=== PATIENT | female | born 1945 | race Caucasian/White ===

== ENCOUNTER 2023-05-19 19:05 | Emergency (ER) | payer MEDICARE, SELFPAY ==
[2023-05-19 19:06] VITALS: BP 173/79; PULSE 85; RESP 18; TEMP 36.8; O2SAT 92; BMI 30.9
[2023-05-19 19:24] VITALS: BP 173/79; PULSE 86; RESP 18; O2SAT 95
--- NOTE | 2023-05-19 19:35 | ED_ITS ---
HPI - Back Pain/Injury General: Chief Complaint: Back Pain/Injury Stated Complaint: BACK PAIN Time Seen by Provider: 05/19/23 19:10 History of Present Illness: 77 years old female with chronic leg pain presents emergency room via EMS today with increased diffuse lower extremity pain. Patient described pain as aching sensation mostly on the anterior aspect of both thighs. Patient has any recent fall or injury. Denies any numbness or tingling no bowel bladder dysfunction. Denies any back pain, dysuria, hematuria urine frequency. Patient was given IV pain medication in route and feels that the pain is subsided significantly. Increased pain with movement only at this time. Associated symptoms: Deny chills, fatigue or fever(s) Review of Systems General: Reports: 10 or more systems reviewed and unremarkable except in HPI and below Const: Denies: fever(s), chills, body aches, change in appetite, change in weight, fatigue, malaise, night sweats, diaphoresis, change in sleep pattern or daytime sleepiness Resp: Denies: dyspnea, productive cough, non-productive cough, wheezing or stridor Musc: Reports: extremity pain and muscle cramps; Denies: back pain, extremity swelling, joint pain, muscle weakness, decrease in muscle mass or deformity Physical Exam Const: COMMON NORMALS: no acute distress, average body habitus, patient oriented x3, no limitations, healthy appearing, alert and well nourished HENMT: COMMON NORMALS: normocephalic, atraumatic, hearing grossly normal bilaterally, external ears normal, EAC's normal, TM's normal bilaterally, Normal external nose present, Normal nasal mucous membranes and turbinates present, moist oral mucous membranes, oropharynx normal, dentition normal and gingiva normal HEAD & SCALP: normocephalic and atraumatic NOSE: Normal external nose present and Normal nasal mucous membranes and turbinates present EXTERNAL EAR: Yes external ears normal EXTERNAL AUDITORY CANAL: EAC's normal TYMPANIC MEMBRANE: TM's normal bilaterally Neck/C-Spine: COMMON NORMALS: no JVD Chest: COMMONS NORMALS: normal inspection of the chest, normal palpation of entire chest wall, normal inspection of the breasts and normal palpation of the breasts Breast/axilla inspection: Yes normal inspection of the breasts BREAST/AXILLA PALPATION: Yes normal palpation of the breasts Cardio: COMMON NORMALS: no JVD, regular rate, regular rhythm, S1 normal heart sound present, S2 normal heart sound present, No gallops present (Cardio), No clicks present (Cardio), No murmurs present (Cardio), No rub (Cardio) and Peripheral pulses 2+ throughout RATE: regular rate RHYTHM: regular rhythm HEART SOUNDS: S1 normal heart sound present and S2 normal heart sound present PERIPHERAL PULSES: Peripheral pulses 2+ throughout GI: COMMON NORMALS: Normal to inspection, nondistended, normoactive bowel sounds present, Soft to palpation, non-tender, No hepatosplenomegaly present, no masses and no bruits PALPATION: Yes Soft to palpation and Yes No hepatosplenomegaly present Extremity: NARRATIVE EXTREMITY EXAM: No calf tenderness, no palpable cords. No swelling or pitting edema. EXTREMITY IMAGE (FRONT): 1. Area with diffuse tenderness on palpation. No obvious rash or lesion. No visible deformity. 2. Area with diffuse tenderness on palpation. No visible rash or lesion. Neuro: COMMON NORMALS: patient oriented x3 SENSORIUM/ORIENTATION: Yes alert Course Vital Signs: Vital signs: Vital Signs Temperature 98.3 F 05/19/23 19:06 Pulse Rate 91 05/19/23 20:53 Respiratory Rate 18 05/19/23 20:53 Blood Pressure 173/79 05/19/23 19:24 Pulse Oximetry 95 05/19/23 20:53 Oxygen Delivery Me thod Room Air 05/19/23 19:24 MDM - Back Pain/Injury Medical Decision Making Patient was made comfortable emergency room. Patient extensive work-up including CBC, CMP, patient was given IV medication. Patient be discharged home with family. Differential Diagnosis Likely sciatica, strain of lumbar region and thoracic back pain Labs 05/19/23 19:45 05/19/23 19:45 Laboratory Results WBC 5.88 10^3/uL (3.29-11.43) 05/19/23 19:45 RBC 4.13 10^6/uL (3.85-5.65) 05/19/23 19:45 Hgb 11.70 g/dL (11.27-16.99) 05/19/23 19:45 Hct 36.3 % (36-47) 05/19/23 19:45 MCV 87.9 fl (85-98) 05/19/23 19:45 MCH 28.3 pg (27-33) 05/19/23 19:45 MCHC 32.2 g/dL (30-55) 05/19/23 19:45 RDW 15.0 % (12.1-15.1) 05/19/23 19:45 Plt Count 304 10^3/cmm (157-399) 05/19/23 19:45 MPV 9.1 fL (7.4-10.4) 05/19/23 19:45 Neut % (Auto) 71.4 % 05/19/23 19:45 Lymph % (Auto) 17.2 % 05/19/23 19:45 [place] % (Auto) 8.8 % 05/19/23 19:45 Eos % (Auto) 2.0 % 05/19/23 19:45 Baso % (Auto) 0.3 % 05/19/23 19:45 Neut # (Auto) 4.19 10^3/uL (1.8-7.7) 05/19/23 19:45 Lymph # (Auto) 1.0 10^3/uL (0.8-4.8) 05/19/23 19:45 [place] # (Auto) 0.5 10^3/uL (0.2-0.9) 05/19/23 19:45 Eos # (Auto) 0.1 10^3/uL (0.0-0.8) 05/19/23 19:45 Baso # (Auto) 0.0 10^3/uL (0.0-0.1) 05/19/23 19:45 Nucleated RBC % (auto) 0 % 05/19/23 19:45 Nucleated RBCs # 0.0 /100WBC 05/19/23 19:45 Sodium 133 mmol/L (136-145) L 05/19/23 19:45 Potassium 3.4 mmol/L (3.5-5.1) L 05/19/23 19:45 Chloride 100 mmol/L (98-107) 05/19/23 19:45 Carbon Dioxide 24 mmol/L (22-29) 05/19/23 19:45 Anion Gap 12.4 (5-19) 05/19/23 19:45 BUN 12 mg/dL (8-23) 05/19/23 19:45 Creatinine 0.8 mg/dL (0.5-0.9) 05/19/23 19:45 GFR Calculation Not Reportable 05/19/23 19:45 Glucose 97 mg/dL (65-115) 05/19/23 19:45 Calculated Osmolality 276 mOsm/kg (285-295) L 05/19/23 19:45 Calcium 9.2 mg/dL (8.5-10.5) 05/19/23 19:45 Magnesium 2.0 mg/dL (1.7-2.3) 05/19/23 19:45 Total Bilirubin 0.3 mg/dL (0.15-1.2) 05/19/23 19:45 AST 20 U/L (0-32) 05/19/23 19:45 ALT 8 U/L (0-33) 05/19/23 19:45 Alkaline Phosphatase 113 U/L (35-105) H 05/19/23 19:45 Total Protein 7.6 g/dL (6.6-8.7) 05/19/23 19:45 Albumin 4.3 g/dL (3.5-5.2) 05/19/23 19:45 Globulin 3.3 g/dL (1.3-4.6) 05/19/23 19:45 No radiology studies performed this visit Discharge Plan Discharge Patient Disposition: Home Clinical Impression: Myalgia, Leg pain, bilateral Condition: Stable Prescriptions: No Action potassium chloride 20 mEq Tablet Extended Release 20 meq PO DAILY gabapentin 600 mg tablet 600 mg PO DIRECTED Rx Instructions: 4x day oxycodone 10 mg tablet 10 mg PO 3XD PRN (Reason: Pain) famotidine 20 mg Tablet 20 mg PO DAILY Synthroid 25 mcg tablet 25 mcg PO DAILY duloxetine 30 mg capsule,delayed release(DR/EC) 30 mg PO 2XD oxybutynin chloride 5 mg tablet 5 mg PO DAILY Discharge Orders: Discharge ED (Routine); Ordered 05/19/23 Ordered By: Melly Bass Discharge Diet: Advance as tolerated Discharge Activity: Resume usual activity Patient Instructions: Opioid Safety, Pain Management Coding Level of Care Code ED Probation Supervisor for Trever Garcia
[2023-05-19] MEDS: ketorolac 30 mg/mL INJ 15 MG IVP (19:44)
[2023-05-19 19:53] LABS: Basophils % 0.3 %; Eosinophils # 0.1 10^3/uL (0.0-0.8); Hematocrit 36.3 % (36-47); Lymphocytes % 17.2 %; Mean Corpuscular HGB Conc 32.2 g/dL (30-55); Mean Corpuscular Hemoglobin 28.3 pg (27-33); Mean Corpuscular Volume 87.9 fl (85-98); Mean Platelet Volume 9.1 fL (7.4-10.4); Monocytes # 0.5 10^3/uL (0.2-0.9); Monocytes % 8.8 %; Neutrophils # 4.19 10^3/uL (1.8-7.7); Neutrophils % 71.4 %; Nucleated Red Blood Cells % 0 %; Platelet Count 304 10^3/cmm (157-399); Red Blood Count 4.13 10^6/uL (3.85-5.65); White Blood Count 5.88 10^3/uL (3.29-11.43)
[2023-05-19 20:11] LABS: Alanine Aminotransferase 8 U/L (0-33); Albumin Level 4.3 g/dL (3.5-5.2); Alkaline Phosphatase 113 U/L (35-105); Anion Gap 12.4 (5-19); Aspartate Amino Transferase 20 U/L (0-32); Blood Urea Nitrogen 12 mg/dL (8-23); Calcium 9.2 mg/dL (8.5-10.5); Carbon Dioxide 24 mmol/L (22-29); Chloride 100 mmol/L (98-107); Creatinine Clr Calc Pharmacy 59.9086; Globulin 3.3 g/dL (1.3-4.6); Glucose 97 mg/dL (65-115); Osmolality Calculated 276 mOsm/kg (285-295); Potassium 3.4 mmol/L (3.5-5.1); Sodium 133 mmol/L (136-145); Total Bilirubin 0.3 mg/dL (0.15-1.2); Total Protein 7.6 g/dL (6.6-8.7)
[2023-05-19 20:53] VITALS: PULSE 91; RESP 18; O2SAT 95
== END 2023-05-19 20:50 | disposition home or self-care (01) ==
PROVIDERS: Emergency Provider Family Medicine; PCP Family Medicine
DX: M79.604 Pain in right leg (principal); M79.605 Pain in left leg; M79.10 Myalgia, unspecified site
CPT/HCPCS: 36415; 80053; 83735; 85025; 96374; 99284; J1885

== ENCOUNTER → 2023-06-05 09:16 | Outpatient (BNVA) | payer MEDICARE, SELFPAY | PROVIDERS: PCP Family Medicine; Visit Provider Specialist | DX: M16.12 Unilateral primary osteoarthritis, left hip; K02.9 Dental caries, unspecified | CPT/HCPCS: 73502; 99204 ==

== ENCOUNTER 2024-01-27 20:45 | Inpatient (IN) | payer MEDICARE, SELFPAY ==
[2024-01-27 20:46] VITALS: BP 145/42; PULSE 66; RESP 18; TEMP 36.7; O2SAT 95; BMI 29.2
[2024-01-27 20:53] VITALS: BP 145/42; PULSE 66; O2SAT 93
--- NOTE | 2024-01-27 20:53 | XRR_ITS ---
PROCEDURE INFORMATION: Exam: XR Left Hip Exam date and time: 01/27/2024 8:55 PM Age: 78 years old Clinical indication: Injury or trauma; Fall; Blunt trauma (contusions or hematomas); Left; Hip and pelvic region TECHNIQUE: Imaging protocol: Radiologic exam of the left hip. Views: 2 or 3 views hip with pelvis when performed. COMPARISON: CR XR hip LT 2-3V wo/w pel* [id number] 06/05/2023 9:35 AM FINDINGS: Bones/joints: Severe left hip osteoarthritis. Moderate to severe right hip osteoarthritis. Soft tissues: Unremarkable. XR/XR hip LT 2-3V wo/w pel* [id number] IMPRESSION: 1. Negative for fracture or dislocation, if concern for fracture remains clinically consider further evaluation with a CT scan given decreased bone mineral density somewhat limiting evaluation. 2. Severe left hip osteoarthritis. 3. Moderate to severe right hip osteoarthritis.
--- NOTE | 2024-01-27 20:53 | CTR_ITS ---
PROCEDURE INFORMATION: Exam: CT Lumbar Spine Without Contrast Exam date and time: 01/27/2024 9:10 PM Age: 78 years old Clinical indication: Injury or trauma; Blunt trauma (contusions or hematomas); Patient HX: EMS arrival from home for fall. Family found patient lying on the floor. Endorses back pain and left hip pain. History of dementia. Limited history. TECHNIQUE: Imaging protocol: Computed tomography of the lumbar spine without contrast. Radiation optimization: All CT scans at this facility use at least one of these dose optimization techniques: automated exposure control; mA and/or kV adjustment per patient size (includes targeted exams where dose is matched to clinical indication); or iterative reconstruction. COMPARISON: CT thoracic spin wo con* [id number] 01/27/2024 9:04 PM RADIATION DOSE METRICS: Total DLP (mGy-cm): 951.17 FINDINGS: Bones/joints: Compression deformities of T12, L1, L2, L3, L4 and L5, age indeterminate, negative for retropulsion of bony fragments. Right sacral 12 mm sclerotic benign bony lesion. L1-L2: No significant disc bulge or herniation. No severe spinal canal stenosis. No significant neural foraminal narrowing. L2-L3: No significant disc bulge or herniation. No severe spinal canal stenosis. No significant neural foraminal narrowing. L3-L4: L3-L4 broad-based disc bulge with [id number] bilateral foraminal narrowing. L4-L5: L4-L5 broad-based disc bulge with mild bilateral foraminal narrowing. L5-S1: L5-S1 broad-based disc bulge with moderate to severe bilateral foraminal narrowing. Lungs: Bibasilar atelectasis versus minimal infiltrate. Emphysematous changes. Heart: Cardiomegaly. Kidneys and ureters: Bilateral nonobstructing renal calyceal stones. Right kidney cysts. Soft tissues: Unremarkable. Other findings: Large hiatal hernia similar visualized. CT/CT lumbar spine wo con* [id number] IMPRESSION: 1. Compression deformities of T12, L1, L2, L3, L4 and L5, age indeterminate, negative for retropulsion of bony fragments. 2. Cardiomegaly. 3. Bibasilar atelectasis versus minimal infiltrate. 4. Emphysematous changes. 5. Bilateral nonobstructing renal calyceal stones. 6. Right kidney cysts. 7. Large hiatal hernia similar visualized. 8. Right sacral 12 mm sclerotic benign bony lesion. 9. L3-L4 broad-based disc bulge with [id number] bilateral foraminal narrowing. 10. L4-L5 broad-based disc bulge with mild bilateral foraminal narrowing. 11. L5-S1 broad-based disc bulge with moderate to severe bilateral foraminal narrowing. COMMENTS: Consistent with the [place] [employer]'s Incidental Findings Committee white paper (J Am Annalisa Radiol 2018): Any incidental renal lesion less than 1 cm or classified as too small to characterize, or any incidental cystic renal lesion characterized as simple-appearing, is likely benign. No follow-up imaging is recommended for these lesions per consensus recommendations based on imaging criteria.
--- NOTE | 2024-01-27 20:53 | CTR_ITS ---
PROCEDURE INFORMATION: Exam: CT Thoracic Spine Without Contrast Exam date and time: 01/27/2024 9:04 PM Age: 78 years old Clinical indication: Injury or trauma; Blunt trauma (contusions or hematomas); Patient HX: EMS arrival from home for fall. Family found patient lying on the floor. Endorses back pain and left hip pain. History of dementia. Limited history. TECHNIQUE: Imaging protocol: Computed tomography of the thoracic spine without contrast. Radiation optimization: All CT scans at this facility use at least one of these dose optimization techniques: automated exposure control; mA and/or kV adjustment per patient size (includes targeted exams where dose is matched to clinical indication); or iterative reconstruction. COMPARISON: No relevant prior studies available. RADIATION DOSE METRICS: Total DLP (mGy-cm): 871.52 FINDINGS: Bones/joints: T10, T11 and L1 vertebral body compression deformities without retropulsion of bony fragments. T1-T2: No significant disc bulge or herniation. No severe spinal canal stenosis. No significant neural foraminal narrowing. T2-T3: No significant disc bulge or herniation. No severe spinal canal stenosis. No significant neural foraminal narrowing. T3-T4: No significant disc bulge or herniation. No severe spinal canal stenosis. No significant neural foraminal narrowing. T4-T5: No significant disc bulge or herniation. No severe spinal canal stenosis. No significant neural foraminal narrowing. T5-T6: No significant disc bulge or herniation. No severe spinal canal stenosis. No significant neural foraminal narrowing. T6-T7: No significant disc bulge or herniation. No severe spinal canal stenosis. No significant neural foraminal narrowing. T7-T8: No significant disc bulge or herniation. No severe spinal canal stenosis. No significant neural foraminal narrowing. T8-T9: No significant disc bulge or herniation. No severe spinal canal stenosis. No significant neural foraminal narrowing. T9-T10: No significant disc bulge or herniation. No severe spinal canal stenosis. No significant neural foraminal narrowing. T10-T11: No significant disc bulge or herniation. No severe spinal canal stenosis. No significant neural foraminal narrowing. T11-T12: No significant disc bulge or herniation. No severe spinal canal stenosis. No significant neural foraminal narrowing. T12-L1: No significant disc bulge or herniation. No severe spinal canal stenosis. No significant neural foraminal narrowing. Lungs: Emphysematous changes. Bibasilar atelectasis versus infiltrate. Heart: Cardiomegaly. Other findings: Coronary artery atherosclerotic calcifications. Large hiatal hernia. CT/CT thoracic spin wo con* [id number] IMPRESSION: 1. T10, T11 and L1 vertebral body compression deformities without retropulsion of bony fragments. 2. Cardiomegaly. 3. Coronary artery atherosclerotic calcifications. 4. Large hiatal hernia. 5. Emphysematous changes. 6. Bibasilar atelectasis versus infiltrate.
--- NOTE | 2024-01-27 20:58 | W.ED.FALL ---
HPI - Fall General: Chief Complaint: Fall Stated Complaint: fall/back pain Time Seen by Provider: 01/27/24 20:47 Source: patient and EMS Mode of arrival: EMS Limitations: no limitations History of Present Illness: 78-year-old female with a history of dementia patient came in by EMS family states she had fallen at home talk to family as well he states she has been much more altered than her baseline patient here he only really tells me her name not able answer any questions she complained of some back pain. Pain was unsure how she fell they just found her on the floor Review of Systems General: Reports: ROS unobtainable due to mental status PFSH ED PFSH: Medical History Hypothyroidism Overactive bladder Dementia Dental caries Physical Exam Const: COMMON NORMALS: negative for patient oriented x3 HENMT: COMMON NORMALS: normocephalic and atraumatic HEAD & SCALP: normocephalic and atraumatic Neck/C-Spine: COMMON NORMALS: full ROM and supple Chest: COMMONS NORMALS: normal inspection of the chest and normal palpation of entire chest wall Resp: COMMON NORMALS: normal respiratory effort, No retractions, No use of accessory muscles and clear to auscultation bilaterally AUSCULTATION: clear to auscultation bilaterally Cardio: COMMON NORMALS: regular rate, regular rhythm and No murmurs present (Cardio) RATE: regular rate RHYTHM: regular rhythm GI: COMMON NORMALS: Normal to inspection, nondistended, normoactive bowel sounds present, Soft to palpation, non-tender and no masses PALPATION: Yes Soft to palpation Extremity: COMMON NORMALS: normal to inspection and full ROM Neuro: COMMON NORMALS: moves all extremities and no focal motor deficits; negative for patient oriented x3 Psych: COMMON NORMALS: mental status grossly normal, Normal thought process present and cooperative THOUGHT PROCESS: Normal thought process present Skin: COMMON NORMALS: no rashes or lesions noted and no wounds GENERAL SKIN EXAM: no rashes or lesions noted Course Vital Signs: Vital signs: Vital Signs Temperature 98.0 F 01/27/24 20:46 Pulse Rate 58 L 01/28/24 07:55 Respiratory Rate 16 01/28/24 07:55 Blood Pressure 113/42 01/28/24 00:53 Pulse Oximetry 96 01/28/24 07:55 Oxygen Delivery Me thod Nasal Cannula 01/28/24 07:55 Oxygen Flow Rate 2 01/28/24 07:55 MDM - Fall Medical Decision Making Patient presents here with confusion she was found to be hyponatremic spoke to the hospitalist will admit at this time Medical Records I reviewed the patient's medical records. Lab Data I reviewed the patient's lab results. 01/28/24 03:54 01/28/24 08:36 Radiology Impressions Hip/Pelvis X-Ray 01/27/24 20:53 IMPRESSION: 1. Negative for fracture or dislocation, if concern for fracture remains clinically consider further evaluation with a CT scan given decreased bone mineral density somewhat limiting evaluation. 2. Severe left hip osteoarthritis. 3. Moderate to severe right hip osteoarthritis. Lumbar Spine CT 01/27/24 20:53 IMPRESSION: 1. Compression deformities of T12, L1, L2, L3, L4 and L5, age indeterminate, negative for retropulsion of bony fragments. 2. Cardiomegaly. 3. Bibasilar atelectasis versus minimal infiltrate. 4. Emphysematous changes. 5. Bilateral nonobstructing renal calyceal stones. 6. Right kidney cysts. 7. Large hiatal hernia similar visualized. 8. Right sacral 12 mm sclerotic benign bony lesion. 9. L3-L4 broad-based disc bulge with [id number] bilateral foraminal narrowing. 10. L4-L5 broad-based disc bulge with mild bilateral foraminal narrowing. 11. L5-S1 broad-based disc bulge with moderate to severe bilateral foraminal narrowing. COMMENTS: Consistent with the [place] [employer]'s Incidental Findings Committee white paper (J Am Annalisa Radiol 2018): Any incidental renal lesion less than 1 cm or classified as too small to characterize, or any incidental cystic renal lesion characterized as simple-appearing, is likely benign. No follow-up imaging is recommended for these lesions per consensus recommendations based on imaging criteria. Thoracic Spine CT 01/27/24 20:53 IMPRESSION: 1. T10, T11 and L1 vertebral body compression deformities without retropulsion of bony fragments. 2. Cardiomegaly. 3. Coronary artery atherosclerotic calcifications. 4. Large hiatal hernia. 5. Emphysematous changes. 6. Bibasilar atelectasis versus infiltrate. Hip CT 01/27/24 21:08 IMPRESSION: 1. Negative for fracture or dislocation. 2. Severe left hip osteoarthritis. Cervical Spine CT 01/27/24 22:08 IMPRESSION: No acute findings. Head CT 01/27/24 22:08 IMPRESSION: No acute intracranial abnormality. Chest CTA 01/28/24 00:08 IMPRESSION: No acute intrathoracic pathology. Multiple compression fractures. Laboratory Results WBC 14.53 10^3/uL (3.29-11.43) H 01/27/24 22:35 RBC 4.21 10^6/uL (3.85-5.65) 01/27/24 22:35 Hgb 11.80 g/dL (11.27-16.99) 01/27/24 22: Hct 33.8 % (36-47) L 01/27/24 22: MCV 80.3 fl (85-98) L 01/27/24 22: MCH 28.0 pg (27-33) 01/27/24 22: MCHC 34.9 g/dL (30-55) 01/27/24 22: RDW 14.3 % (12.1-15.1) 01/27/24 22:35 Plt Count 367 10^3/cmm (157-399) 01/27/24 22:35 MPV 9.2 fL (7.4-10.4) 01/27/24 22:35 Neut % (Auto) 93.3 % 01/27/24 22:35 Lymph % (Auto) 3.0 % 01/27/24 22:35 [place] % (Auto) 3.1 % 01/27/24 22:35 Eos % (Auto) 0.0 % 01/27/24: Baso % (Auto) 0.3 % 01/27/24 22:35 Neut # (Auto) 13.54 10^3/uL (1.8-7.7) H 01/27/24 22:35 Lymph # (Auto) 0.4 10^3/uL (0.8-4.8) L 01/27/24 22:35 [place] # (Auto) 0.5 10^3/uL (0.2-0.9) 01/27/24 22:35 Eos # (Auto) 0.0 10^3/uL (0.0-0.8) 01/27/24 22:35 Baso # (Auto) 0.1 10^3/uL (0.0-0.1) 01/27/24 22:35 Nucleated RBC % (auto) 0 % 01/27/24 22:35 Nucleated RBCs # 0.0 /100WBC 01/27/24 22:35 D-Dimer >= 20.00 ug/mLFEU (0-0.59) H 01/27/24 22:35 Sodium 113 mmol/L (136-145) L* 01/28/24 00:00 Potassium 1.7 mmol/L (3.5-5.1) L* 01/28/24 00:00 Chloride 71 mmol/L (98-107) L 01/28/24 00:00 Carbon Dioxide 23 mmol/L (22-29) 01/28/24 00:00 Anion Gap 20.7 (5-19) H 01/28/24 00:00 BUN 18 mg/dL (8-23) 01/28/24 00:00 Creatinine 1.0 mg/dL (0.5-0.9) H 01/28/24 00:00 GFR Calculation Not Reportable 01/28/24 00:00 Glucose 93 mg/dL (65-115) 01/28/24 00:00 Calculated Osmolality 238 mOsm/kg (285-295) L 01/28/24 00:00 Calcium 8.5 mg/dL (8.5-10.5) 01/28/24 00:00 Total Bilirubin 1.0 mg/dL (0.15-1.2) 01/27/24 22:35 AST 76 U/L (0-32) H 01/27/24 22:35 ALT 23 U/L (0-33) 01/27/24 22:35 Alkaline Phosphatase 147 U/L (35-105) H 01/27/24 22:35 Total Protein 7.3 g/dL (6.6-8.7) 01/27/24 22:35 Albumin 3.6 g/dL (3.5-5.2) 01/27/24 22:35 Globulin 3.7 g/dL (1.3-4.6) 01/27/24 22:35 TSH 1.60 uIU/mL (0.27-4.20) 01/27/24 22:35 Urine Color Yellow (Yellow) 01/27/24 22:57 Urine Appearance Slightly cloudy (CLEAR) 01/27/24 22:57 Urine pH 6 (5-7) 01/27/24 22:57 Ur Specific [place] 1.010 (1.005-1.030) 01/27/24 22:57 Urine Protein Neg (Negative) 01/27/24 22:57 Urine Glucose (UA) Norm (Normal) 01/27/24 22:57 Urine Ketones 1+ (Negative) H 01/27/24 22:57 Urine Blood 2+ (Negative) H 01/27/24 22:57 Urine Nitrate Negative (Negative) 01/27/24 22:57 Urine Bilirubin Neg (Negative) 01/27/24 22:57 Urine Urobilinogen Neg mg/dL (Negative) 01/27/24 22:57 Ur Leukocyte Esterase Negative (Negative) 01/27/24 22:57 Urine RBC 0-4 /hpf (0-2) H 01/27/24 22:57 Urine WBC 5-10 /hpf (0-5) H 01/27/24 22:57 Ur Squamous Epith Cells 0-4 /hpf (0-5) H 01/27/24 22:57 Amorphous Sediment Not Reportable 01/27/24 22:57 Urine Bacteria 3+ /hpf (NONE) H 01/27/24 22:57 Urine Mucus 1+ /hpf 01/27/24 22:57 Ur Random Sodium 61 mmol/L 01/28/24 00:15 Ur Random Potassium 49 mmol/L 01/28/24 00:15 Ur Random Chloride 80 mmol/L 01/28/24 00:15 Urine Creatinine 50 mg/dL (28-217) 01/28/24 00:15 All radiology interpretation(s) finalized by discharge Discharge Plan Discharge Patient Disposition: Admitted As Inpatient Admit Provider: Kenyon Mcclain Clinical Impression: Fall, AMS (altered mental status), Hyponatremia Condition: Stable Coding Level of Care Code ED [employer] General Sales Manager for Trever Garcia
--- NOTE | 2024-01-27 21:08 | CTR_ITS ---
PROCEDURE INFORMATION: Exam: CT Left Lower Extremity Without Contrast, Hip Exam date and time: 01/27/2024 9:13 PM Age: 78 years old Clinical indication: Injury or trauma; Blunt trauma; Patient HX: EMS arrival from home for fall. Family found patient lying on the floor. Endorses back pain and left hip pain. History of dementia. Limited history. TECHNIQUE: Imaging protocol: CT of the left lower extremity without contrast was performed. Exam focused on the hip. Radiation optimization: All CT scans at this facility use at least one of these dose optimization techniques: automated exposure control; mA and/or kV adjustment per patient size (includes targeted exams where dose is matched to clinical indication); or iterative reconstruction. COMPARISON: CR (PELVIS, ) 01/27/2024 8:55 PM RADIATION DOSE METRICS: Total DLP (mGy-cm): 460.17 FINDINGS: Bones/joints: Severe left hip osteoarthritis. Soft tissues: Normal. CT/CT hip LT wo con* [id number] IMPRESSION: 1. Negative for fracture or dislocation. 2. Severe left hip osteoarthritis.
[2024-01-27 21:23] VITALS: BP 143/43; PULSE 65; O2SAT 95
[2024-01-27 21:53] VITALS: BP 125/50; PULSE 62; O2SAT 94
--- NOTE | 2024-01-27 22:08 | CTR_ITS ---
PROCEDURE INFORMATION: Exam: CT Head Without Contrast Exam date and time: 01/27/2024 10:16 PM Age: 78 years old Clinical indication: Injury or trauma; Fall; Blunt trauma (contusions or hematomas); Patient HX: Patient found on the floor at home by family. Family states patient has been more confused than normal. History of dementia. Patient non verbal upon exam. TECHNIQUE: Imaging protocol: Computed tomography of the head without contrast. Radiation optimization: All CT scans at this facility use at least one of these dose optimization techniques: automated exposure control; mA and/or kV adjustment per patient size (includes targeted exams where dose is matched to clinical indication); or iterative reconstruction. COMPARISON: No relevant prior studies available. RADIATION DOSE METRICS: Total DLP (mGy-cm): 686.51 FINDINGS: Brain: Normal. No hemorrhage. Unremarkable white matter. No mass effect. Cerebral ventricles: No ventriculomegaly. Paranasal sinuses: Visualized sinuses are unremarkable. No fluid levels. Mastoid air cells: Visualized mastoid air cells are well aerated. Bones: Unremarkable. No acute fracture. Soft tissues: Unremarkable. CT/CT head wo con* [id number] IMPRESSION: No acute intracranial abnormality.
--- NOTE | 2024-01-27 22:08 | CTR_ITS ---
PROCEDURE INFORMATION: Exam: CT Cervical Spine Without Contrast Exam date and time: 01/27/2024 10:18 PM Age: 78 years old Clinical indication: Injury or trauma; Fall; Blunt trauma; Patient HX: Patient found on the floor at home by family. Family states patient has been more confused than normal. History of dementia. Patient non verbal upon exam. TECHNIQUE: Imaging protocol: Computed tomography of the cervical spine without contrast. Radiation optimization: All CT scans at this facility use at least one of these dose optimization techniques: automated exposure control; mA and/or kV adjustment per patient size (includes targeted exams where dose is matched to clinical indication); or iterative reconstruction. COMPARISON: CT head wo con* [id number] 01/27/2024 10:16 PM RADIATION DOSE METRICS: Total DLP (mGy-cm): 116.77 FINDINGS: Bones/joints: No acute fracture. Normal alignment. C2-C3: No significant disc bulge or herniation. No severe spinal canal stenosis. No significant neural foraminal narrowing. C3-C4: No significant disc bulge or herniation. No severe spinal canal stenosis. No significant neural foraminal narrowing. C4-C5: No significant disc bulge or herniation. No severe spinal canal stenosis. No significant neural foraminal narrowing. C5-C6: No significant disc bulge or herniation. No severe spinal canal stenosis. No significant neural foraminal narrowing. C6-C7: No significant disc bulge or herniation. No severe spinal canal stenosis. No significant neural foraminal narrowing. C7-T1: No significant disc bulge or herniation. No severe spinal canal stenosis. No significant neural foraminal narrowing. Lungs: Lung apices are normal. Soft tissues: Unremarkable. CT/CT cervical spin wo con* [id number] IMPRESSION: No acute findings.
[2024-01-27 22:23] VITALS: BP 125/45; PULSE 62; O2SAT 95
[2024-01-27 22:46] LABS: Basophils # 0.1 10^3/uL (0.0-0.1); Basophils % 0.3 %; Hematocrit 33.8 % (36-47); Lymphocytes # 0.4 10^3/uL (0.8-4.8); Mean Corpuscular HGB Conc 34.9 g/dL (30-55); Mean Corpuscular Volume 80.3 fl (85-98); Mean Platelet Volume 9.2 fL (7.4-10.4); Monocytes # 0.5 10^3/uL (0.2-0.9); Monocytes % 3.1 %; Neutrophils # 13.54 10^3/uL (1.8-7.7); Neutrophils % 93.3 %; Nucleated Red Blood Cells % 0 %; Platelet Count 367 10^3/cmm (157-399); Red Blood Count 4.21 10^6/uL (3.85-5.65); Red Cell Distribution Width 14.3 % (12.1-15.1); White Blood Count 14.53 10^3/uL (3.29-11.43)
[2024-01-27 22:53] VITALS: BP 125/43; PULSE 64; O2SAT 92
[2024-01-27 23:03] LABS: Alanine Aminotransferase 23 U/L (0-33); Albumin Level 3.6 g/dL (3.5-5.2); Alkaline Phosphatase 147 U/L (35-105); Anion Gap 18.8 (5-19); Blood Urea Nitrogen 18 mg/dL (8-23); Calcium 8.8 mg/dL (8.5-10.5); Carbon Dioxide 24 mmol/L (22-29); Chloride 71 mmol/L (98-107); Creatinine Clr Calc Pharmacy 45.8472; Globulin 3.7 g/dL (1.3-4.6); Glucose 125 mg/dL (65-115); Osmolality Calculated 237 mOsm/kg (285-295); Total Protein 7.3 g/dL (6.6-8.7)
[2024-01-27 23:12] LABS: Aspartate Amino Transferase 76 U/L (0-32)
[2024-01-27 23:12] LABS: Bilirubin Urine Neg (Negative); Blood Urine 2+ (Negative); Glucose Urine UA Norm (Normal); Ketones Urine 1+ (Negative); Leukocyte Esterase Urine Negative (Negative); Nitrate Urine Negative (Negative); Protein Urine Neg (Negative); Urine Appearance Slightly Cloudy (CLEAR); Urine Color Yellow (Yellow); Urobilinogen Urine Neg (Negative); pH Urine 6 (5-7)
[2024-01-27 23:13] LABS: Add Urine Culture? Yes; Add Urine Microscopic? YES; Bacteria Urine 3+ /hpf; Mucus Urine 1+ /hpf; RBC Urine 0-4 /hpf (0-2); Squamous Epithelial Cell Urine 0-4 /hpf (0-5)
[2024-01-27 23:13] LABS: Potassium 1.8 mmol/L (3.5-5.1); Sodium 112 mmol/L (136-145)
--- NOTE | 2024-01-27 23:15 | P.HP_ITS ---
Providers/Chief Complaint 2 Primary Care Provider: Neva Bertrand MD Chief Complaint: fall/back pain History of Present Illness Pilar Gibbons is a 78 year old female without significant past medical history other than dementia, presented with chief complaint of fall. Patient lives in a separate unit close to her family, when family checked on her she was found on the floor as per the family she was probably on the floor for more than 30 minutes and she was able to call for her daughter,, EMS was called and brought to the ER, in the ER she was diagnosed with severe hypokalemia and hyponatremia. Patient is oriented to herself. As per the family she has not been eating well for last 1 day, she was confused during last dinner, her weakness lethargy has worsened. She has not complained of chest pain, no recent fever. No previous history of diabetes stroke or LA. Patient uses a walker at baseline. I have requested repeat BMP, if sodium below 119 she will go to ICU start hypertonic saline bolus consult nephro check BMP every 4 hours Goals of care discussed with the family, daughter is at the bedside: She is DNr/DNI Review of Systems 2 General: Reports: ROS unobtainable due to mental status Medications/Allergies Home Medications Medication Instructions Recorded Confirmed Last Taken Type duloxetine 30 mg capsule,delayed 30 mg PO 2XD 05/19/23 06/05/23 Unknown History release famotidine 20 mg tablet 20 mg PO DAILY 05/19/23 06/05/23 Unknown History gabapentin 600 mg tablet 600 mg PO DIRECTED 05/19/23 06/05/23 Unknown History levothyroxine 25 mcg tablet 25 mcg PO DAILY 05/19/23 06/05/23 Unknown History (Synthroid) oxybutynin chloride 5 mg tablet 5 mg PO DAILY 05/19/23 06/05/23 Unknown History oxycodone 10 mg tablet 10 mg PO 3XD PRN Pain 05/19/23 06/05/23 Unknown History potassium chloride 20 mEq 20 meq PO DAILY 05/19/23 06/05/23 Unknown History tablet,extended release donepezil 5 mg tablet (Aricept) 5 mg PO DAILY 06/05/23 06/05/23 Unknown History Allergies Allergy/AdvReac Type Severity Reaction Status Date / Time No Known Allergies Allergy Verified 01/27/24 20:54 PFSH Acute 2 PFSH: Medical History Hypothyroidism Overactive bladder Dementia Dental caries Vitals/I&O/Wt Last Vital Signs Temp 98.0 F 01/27/24 20:46 Pulse 66 01/27/24 20:46 Resp 18 01/27/24 20:46 BP 145/42 01/27/24 20:46 Pulse Ox 95 01/27/24 20:46 O2 Del Method Room Air 01/27/24 20:46 Weight last 48 hrs Weight 77.111 kg Physical Exam 2 Narrative: Patient looks dehydrated Lower extremity venous stasis dermatitis Erythema noted of lower extremity No purulence noted Pupils are symmetrical Patient able to follow only simple commands Very lethargic and fatigued not able to keep her head straight Hypertensive Currently on room air Family at the bedside Patient is incontinent Abdomen soft No audible stridor or wheeze Data 01/27/24 22:35 01/27/24 22:35 A&P Assessment and plan (1) Primary osteoarthritis of left hip: (2) Hyponatremia: (3) Fall: (4) AMS (altered mental status): (5) Hypokalemia: Plan Hyponatremia Critical sodium 112 Likely chronic Admit to ICU Start hypertonic bolus Will consult nephro BMP every 4 hours Check urine and serum osmolarity, check TSH Patient clinically looks extremely dehydrated with hypovolemia Does not take any diuretics Severe hypokalemia: Replenish potassium admit to ICU Monitor for refeeding syndrome Get EKG to monitor for change in rhythm and QTc prolongation monitor Márquez scan did not show any acute fracture She does have degenerative spine disease I do not see any significant signs of cauda equina at this point however considering L1-L2 area involvement I will start her on Decadron 4 mg every 6 hr UTI: Continue antibiotic Admit to ICU Goals of care discussed with the daughter: Patient is DNR/DNI Start regular diet Abnormal D-dimer request CTA chest to rule out PE because patient was found on the floor, Attestations 2 Medical Necessity Statement*: More than 2 midnights anticipated Coding Level of Care Code Critical Care >/= 30 minutes Critical care time (in minutes): 30 The high probability of a clinically significant, sudden or life threatening deterioration, as referenced in this documentation, required my full and direct attention, intervention and personal management. The critical care time shown is in addition to time spent performing any reported separately billable procedures and includes the following: [x] Data and vital sign review and interpretation [x ] Patient assessment, examination and intervention [x] Medication orders and management [x] Patient/Family updates as able [x] Care Coordination and Documentation. Diagnoses Primary osteoarthritis of left hip M16.12 Hyponatremia E87.1 Fall W19.XXXA AMS (altered mental status) R41.82 Hypokalemia E87.6
[2024-01-28] VITALS (19 sets, daily range): BP systolic 109–162; BP diastolic 42–105; PULSE 56–103; RESP 14–25; TEMP 36.4; O2SAT 91–96; BMI 28.8
[2024-01-28] LABS: D Dimer >= 20.00 ug/mLFEU (0-0.59)
--- NOTE | 2024-01-28 00:08 | CTR_ITS ---
PROCEDURE INFORMATION: Exam: CTA Chest With Contrast Exam date and time: 01/28/2024 1:11 AM Age: 78 years old Clinical indication: Abnormal findings; Abnormal diagnostic tests; Elevated d-dimer; Prior surgery; Surgery date: 6+ months; Surgery type: Breast augmentation; Patient HX: D dimer greater than 20.0. ; Additional info: S[employer] TECHNIQUE: Imaging protocol: Computed tomographic angiography of the chest with contrast. Exam focused on the arteries. 3D rendering (Not supervised by radiologist): MIP and/or 3D reconstructed images were created by the technologist. Radiation optimization: All CT scans at this facility use at least one of these dose optimization techniques: automated exposure control; mA and/or kV adjustment per patient size (includes targeted exams where dose is matched to clinical indication); or iterative reconstruction. Contrast material: OMNI 350; Contrast volume: 75 ml; Contrast route: INTRAVENOUS (IV); COMPARISON: CT cervical spin wo con* [id number] 01/27/2024 10:18 PM RADIATION DOSE METRICS: Total DLP (mGy-cm): 304.1 FINDINGS: Pulmonary arteries: No central pulmonary embolus. Aorta: Unremarkable. No aortic aneurysm. No aortic dissection. Lungs: Dependent atelectasis. Pleural spaces: Unremarkable. No pneumothorax. No pleural effusion. Heart: Unremarkable. No cardiomegaly. No pericardial effusion. Coronary arteries: Extensive coronary calcifications. Lymph nodes: Unremarkable. No enlarged lymph nodes. Diaphragm: Very large hiatal hernia. Bones/joints: Unremarkable. No acute fracture. Soft tissues: Peripherally calcified breast implants. Other findings: Multiple lower thoracic compressions. Diffuse demineralization. CT/CT angio chest PE protcl [id number] IMPRESSION: No acute intrathoracic pathology. Multiple compression fractures.
--- NOTE | 2024-01-28 00:22 | ECG_ITS ---
[facility] Test Date: 2024-01-28 Pat Name: Pilar Gbibons Department: Room: [facility] Gender: Female Resource Paraprofessional: : [id number] Requested By: Kenyon Mcclain Order Number: [id number] Kaylan MD: Jose Gardner M.D. Measurements Intervals [place] Rate: 64 P: -20 [place]: 183 QRS: 69 QRSD: 114 T: 71 QT: 438 QTc: 453 Interpretive Statements SINUS RHYTHM INDETERMINATE AXIS MODERATE INTRAVENTRICULAR CONDUCTION DELAY [110+ ms QRS DURATION] NONSPECIFIC T-WAVE ABNORMALITY No previous ECG available for comparison Electronically Signed On 01-28-2024 8:29:55 CDT by Jose Gardner M.D. [id number]
[2024-01-28 00:35] LABS: Anion Gap 20.7 (5-19); Blood Urea Nitrogen 18 mg/dL (8-23); Calcium 8.5 mg/dL (8.5-10.5); Carbon Dioxide 23 mmol/L (22-29); Chloride 71 mmol/L (98-107); Creatinine Clr Calc Pharmacy 45.8472; Glucose 93 mg/dL (65-115); Osmolality Calculated 238 mOsm/kg (285-295)
[2024-01-28 00:38] LABS: Potassium 1.7 mmol/L (3.5-5.1); Sodium 113 mmol/L (136-145)
[2024-01-28 00:40] LABS: Potassium, Radom Urine 49 mmol/L; Urine Creatinine 50 mg/dL (28-217); Urine Random Chloride 80 mmol/L; Urine Random Sodium 61 mmol/L
[2024-01-28] MEDS: iohexol 350 mg/mL 500 mL Btl (per mL) IV (01:21)
[2024-01-28] MEDS: lidocaine 1% 5 ML in potassium chloride premix 100 ML 26.25 ML IV ×3 (01:27→12:04)
[2024-01-28] MEDS: oxyCODONE 5 mg IR Tab/Cap 10 MG PO ×2 (02:31→21:48)
[2024-01-28] MEDS: sodium chloride 3% 100 ML in empty flexible container 1 EACH 200 ML IV ×2 (02:32→07:25)
[2024-01-28 04:40] LABS: Basophils % 0.2 %; Hematocrit 28.6 % (36-47); Lymphocytes # 0.4 10^3/uL (0.8-4.8); Lymphocytes % 3.3 %; Mean Corpuscular Hemoglobin 27.5 pg (27-33); Mean Corpuscular Volume 78.6 fl (85-98); Mean Platelet Volume 9.5 fL (7.4-10.4); Monocytes # 0.4 10^3/uL (0.2-0.9); Monocytes % 3.1 %; Neutrophils # 10.78 10^3/uL (1.8-7.7); Nucleated Red Blood Cells % 0 %; Platelet Count 327 10^3/cmm (157-399); Red Blood Count 3.64 10^6/uL (3.85-5.65); Red Cell Distribution Width 13.9 % (12.1-15.1); White Blood Count 11.59 10^3/uL (3.29-11.43)
--- NOTE | 2024-01-28 04:42 | PC.NURSE ---
Patient resting on bed quietly, but pulled out gilbert catheter under covers and right ac iv. Unable to redirect at bedside after personal care from attempting to pull out remaining ivs. Dr. Mcclain notified - medical bilateral wrist restaints ordered to maintain iv drip/ lines.
[2024-01-28 05:03] LABS: Anion Gap 17.9 (5-19); Blood Urea Nitrogen 18 mg/dL (8-23); C Reactive Protein 81.6 mg/L (0.0-4.9); Calcium 8.3 mg/dL (8.5-10.5); Carbon Dioxide 24 mmol/L (22-29); Chloride 73 mmol/L (98-107); Creatinine Clr Calc Pharmacy 45.5272; Glucose 93 mg/dL (65-115); Magnesium 2.3 mg/dL (1.7-2.3); Osmolality Calculated 238 mOsm/kg (285-295); Phosphorus 2.8 mg/dL (2.5-4.5)
--- NOTE | 2024-01-28 05:10 | PC.NURSE ---
Patient restless, pulled gilbert and iv out despite being monitored from hallway. Attempting to pull out iv's despite nurse redirection at bedside. Medical restraints applied per md orders.
[2024-01-28 05:20] LABS: Vitamin B12 1497 pg/mL (232-1245)
[2024-01-28 05:41] LABS: Potassium 1.9 mmol/L (3.5-5.1); Sodium 113 mmol/L (136-145)
[2024-01-28] MEDS: enoxaparin 40 mg/0.4 mL Syringe SUBCUT (08:43)
--- NOTE | 2024-01-28 08:48 | P.CONIM_ITS ---
Providers/Reason For Consult 2 Consulting Physician/Specialty*: kommana/nEPHROLOGY Reason for Consult*: hYPONATREMIA Attending Physician: Jose Luong MD Primary Care Provider: Neva Bertrand MD History of Present Illness History of Present Illness Pilar Gibbons is a 78 year old female Patient is a 78-year-old female with past medical history of dementia, hypothyroidism, presented to the emergency department after she suffered a fall family brought her to the ER. In the ER she was found to have severe hypokalemia and hyponatremia patient was confused and oriented to only self. Initial sodium was 112 and she received hypertonic saline with a sodium bump up to 113. She states she received another dose of 3% saline bolus, potassium is being aggressively repleted. Repeat BMP pending. Review of Systems 2 Narrative: CANNOT OBTAIN FULL ROS Medications/Allergies Home Medications Medication Instructions Recorded Confirmed Last Taken Type duloxetine 30 mg capsule,delayed 30 mg PO 2XD 05/19/23 01/28/24 1 Day Ago History release ~01/27/24 famotidine 20 mg tablet 20 mg PO DAILY 05/19/23 01/28/24 1 Day Ago History ~01/27/24 gabapentin 600 mg tablet 600 mg PO QID 05/19/23 01/28/24 1 Day Ago History ~01/27/24 levothyroxine 25 mcg tablet 25 mcg PO DAILY 05/19/23 01/28/24 1 Day Ago History (Synthroid) ~01/27/24 oxybutynin chloride 5 mg tablet 5 mg PO DAILY 05/19/23 01/28/24 1 Day Ago History ~01/27/24 oxycodone 10 mg tablet 10 mg PO 3XD PRN Pain 05/19/23 01/28/24 2 Days Ago History ~01/26/24 potassium chloride 20 mEq 20 meq PO DAILY 05/19/23 01/28/24 1 Day Ago History tablet,extended release ~01/27/24 donepezil 5 mg tablet (Aricept) 5 mg PO DAILY 06/05/23 01/28/24 1 Day Ago History ~01/27/24 Allergies Allergy/AdvReac Type Severity Reaction Status Date / Time No Known Allergies Allergy Verified 01/27/24 20:54 Current Medications Generic Name Dose Route Start Last Admin Trade Name Freq PRN Reason Stop Dose Admin Enoxaparin Sodium 40 mg 01/28/24 09:00 01/28/24 08:43 Enoxaparin 40 Mg/0.4 Ml Syringe SUBCUT 40 mg Q24H THERESE Administration Lidocaine HCl 5 ml/ Potassium 105 mls @ 26.25 mls/hr 01/28/24 06:30 01/28/24 07:37 Chloride IV 01/28/24 10:29 26.25 mls/hr ONCE ONE Administration Levothyroxine Sodium 25 mcg 01/28/24 06:00 01/28/24 06:58 Levothyroxine 25 Mcg Tablet PO Not Given 0600 THERESE Oxycodone HCl 10 mg 01/28/24 01:05 01/28/24 02:31 Oxycodone 5 Mg Ir Tab/Cap PO 10 mg TID PRN Administration PAIN PFSH Acute 2 PFSH: Medical History Hypothyroidism Overactive bladder Dementia Dental caries Vitals/I&O/Wt Last Vital Signs Temp 98.0 F 01/27/24 20:46 Pulse 58 L 01/28/24 07:55 Resp 16 01/28/24 07:55 BP 113/42 01/28/24 00:53 Pulse Ox 96 01/28/24 07:55 O2 Del Method Nasal Cannula 01/28/24 07:55 O2 Flow Rate 2 01/28/24 07:55 01/27/24 01/28/24 01/28/24 22:59 06:59 14:59 Intake Total 255 / 255 100 / 100 Output Total 250 / 250 Balance 5 / 5 100 / 100 Weight last 48 hrs Weight 76 kg Weight 76 kg Weight 77.111 kg Physical Exam 2 Narrative: AWAKE , ALERT NO DISTRESS S1S2 RRR per report Lungs clear per report No edema Urinary Catheter Management: Velez: Cath Placed During This Visit: yes, but has since been removed by the nurse Reason for Continuing Indwelling Catheter: Accurate Measurement of Urinary Output in Critically Ill Patients Date Urinary Catheter Removed: 01/28/24 Time Urinary Catheter Discontinued: 04:00 Data 01/28/24 03:54 01/28/24 03:54 A&P Assessment and plan (1) Hyponatremia: 1. Hyponatremia: Likely hypovolemic in the setting of poor p.o. intake, status post 3% saline boluses x 2, most recent sodium 115, awaiting repeat sodium levels. Await urine osmolality -Depending on the next sodium level we will decide if patient needs 3% saline versus normal saline infusion. -Goal correction upto 8 mEq in 24 hours -Check TSH and cortisol levels 2. Severe hypokalemia: Likely from poor p.o. intake, replete aggressively, check magnesium and replete if low 3. Question UTI 4. Anemia:, Mild monitor Patient evaluated using audiovisual cart. Time spent 40 minutes. (2) Hypokalemia: Consult Attestations 2 Medical Necessity Statement: per truong Coding Level of Care Code Acute Code for Chg Fwd Diagnoses Hyponatremia E87.1 Hypokalemia E87.6
[2024-01-28 09:02] LABS: Blood Urea Nitrogen 16 mg/dL (8-23); Calcium 8.4 mg/dL (8.5-10.5); Carbon Dioxide 24 mmol/L (22-29); Chloride 74 mmol/L (98-107); Creatinine Clr Calc Pharmacy 50.5858; Glucose 82 mg/dL (65-115); Osmolality Calculated 240 mOsm/kg (285-295)
[2024-01-28] MEDS: dexamethasone 4 mg Tablet PO (09:09)
[2024-01-28 09:10] LABS: Anion Gap 18.9 (5-19); Potassium 1.9 mmol/L (3.5-5.1); Sodium 115 mmol/L (136-145)
--- NOTE | 2024-01-28 11:10 | XR_ITS ---
WS: [id number] XR chest 1V portable [id number] REASON FOR EXAM: Post PICC insertion FINDINGS: Right arm PICC line placement with the tip in the mid superior vena cava. Over the phone at 12:01 p.m., the medical transcription radiology was informed of the PICC line tip position a nd advancement of 3 cm was recommended to place the tip in the distal superior vena cava. XR/XR chest 1V portable [id number] IMPRESSION: Right arm PICC line placement as above.
--- NOTE | 2024-01-28 11:43 | P.PN_ITS ---
Subjective 2 Subjective: Pilar is awake, and alert. She has received several infusions of hypertonic saline. She denies any headache, or nausea. She relates she was having some loose stool at home. She is not really able to tell me how much water she was drinking at home. Medications: Reviewed: Yes Vitals/I&O/Wt Last Vital Signs Temp 98.0 F 01/27/24 20:46 Pulse 58 L 01/28/24 07:55 Resp 16 01/28/24 07:55 BP 113/42 01/28/24 00:53 Pulse Ox 96 01/28/24 07:55 O2 Del Method Nasal Cannula 01/28/24 07:55 O2 Flow Rate 2 01/28/24 07:55 01/27/24 01/28/24 01/28/24 22:59 06:59 14:59 Intake Total 255 / 255 100 / 100 Output Total 250 / 250 Balance 5 / 5 100 / 100 Weight last 48 hrs Weight 76 kg Weight 76 kg Weight 77.111 kg Physical Exam 2 Narrative: General exam no distress Neck is supple Cardiovascular regular rate and rhythm, no murmur Lungs clear Abdomen is soft nontender Extremities no sinus clubbing edema Urinary Catheter Management: Velez: Cath Placed During This Visit: yes, but has since been removed by the nurse Reason for Continuing Indwelling Catheter: Accurate Measurement of Urinary Output in Critically Ill Patients Urinary Catheter Date of Insertion: 01/28/24 Urinary Catheter Time of Insertion: 08:40 Date Urinary Catheter Removed: 01/28/24 Time Urinary Catheter Discontinued: 04:00 Data 01/28/24 03:54 01/28/24 08:36 A&P Assessment and plan (1) Hyponatremia: Severe hyponatremia, probably acute Multiple hypertonic saline boluses have been initiated Plan to increase by 6-8 over the next 24 hours BMP every 4 hours Appreciate nephrology consultation (2) UTI (urinary tract infection): Question UTI. Await urine culture. Add Rocephin. (3) Acute encephalopathy: Currently improving. Likely related to low sodium. Head CT with no acute findings B12 and TSH normal Plan Marked hypokalemia. Continue to supplement Fall. No apparent injuries on multiple CT Requires intensive monitoring in the ICU secondary to possibility of arrhythmia or sudden worsening including seizure in this patient with severe electrolyte abnormalities including hypokalemia and hyponatremia Attestations 2 Medical Necessity Statement*: Will need continued hospitalization for close follow-up and treatment of severe hyponatremia Critical Care Time: The high probability of a clinically significant, sudden or life threatening deterioration of the patient's [electrolyte, infectious, renal] system(s) required my full and direct attention, intervention and personal management. The critical care time is as shown. This time is in addition to time spent performing any reported procedures but includes the following: [x] Data and vital sign review and interpretation [x] Patient assessment, examination and intervention [x] Documentation [x] Medication orders and management Critical Care Time (min): 33 Coding Level of Care Code Acute Code for [facility] Fwd Diagnoses Hyponatremia E87.1 UTI (urinary tract infection) N39.0 Acute encephalopathy G93.40
--- NOTE | 2024-01-28 12:45 | PICC.NOTE ---
Triple lumen PICC placed to right basilic vein. Referred to vascular access nurse for PICC placement due to low sodium and potassium levels. Risks and benefits discussed and informed consent obtained from patient daughter, Kandace Jenkins. Right arm assessed with right basilic vein measuring 3.8 mm, straight, and apparent best choice for placement. Using sterile technique and MST, right baslilc vein accessed x 1 stick. Mid-arm circumference measured 10 cm from right AC 27 cm. Trimmed cath 39 cm with 0 cm external length noted. CXR shows tip in SVC. Radiologist recommends advancing line up to 3 cm. Able to advance line [address] line mid-distal SVC. Line secured with stat-lock. Insertion site covered with Biopatch, gauze, and TSM. Report given to bedside nurse, DAXA Jacome.
[2024-01-28 13:07] LABS: Anion Gap 19.2 (5-19); Blood Urea Nitrogen 15 mg/dL (8-23); Calcium 8.4 mg/dL (8.5-10.5); Carbon Dioxide 23 mmol/L (22-29); Chloride 78 mmol/L (98-107); Glucose 90 mg/dL (65-115); Osmolality Calculated 246 mOsm/kg (285-295)
[2024-01-28 13:22] LABS: Potassium 2.2 mmol/L (3.5-5.1); Sodium 118 mmol/L (136-145)
[2024-01-28] MEDS: sodium chloride 0.9% 1,000 ML 50 ML IV (13:42)
[2024-01-28] MEDS: cefTRIAXone 1,000 mg SDV 1000 MG IVP (14:16)
[2024-01-28] MEDS: potassium chloride oral liq 20 mEq/15 mL UDC 40 MEQ PO (14:17)
[2024-01-28] MEDS: bisacodyl 10 mg Supp PR (14:17)
[2024-01-28] MEDS: docusate sodium 100 mg Capsule PO ×2 (14:17→17:32)
[2024-01-28 16:26] LABS: Blood Urea Nitrogen 15 mg/dL (8-23); Calcium 8.3 mg/dL (8.5-10.5); Carbon Dioxide 22 mmol/L (22-29); Chloride 78 mmol/L (98-107); Glucose 113 mg/dL (65-115); Osmolality Calculated 244 mOsm/kg (285-295)
[2024-01-28 16:32] LABS: Anion Gap 18.6 (5-19); Potassium 2.6 mmol/L (3.5-5.1)
[2024-01-28 16:33] LABS: Sodium 116 mmol/L (136-145)
[2024-01-28 21:00] LABS: Anion Gap 19.4 (5-19); Blood Urea Nitrogen 14 mg/dL (8-23); Calcium 8.3 mg/dL (8.5-10.5); Carbon Dioxide 21 mmol/L (22-29); Chloride 77 mmol/L (98-107); Glucose 96 mg/dL (65-115); Osmolality Calculated 240 mOsm/kg (285-295)
[2024-01-28 21:09] LABS: Potassium 2.4 mmol/L (3.5-5.1); Sodium 115 mmol/L (136-145)
[2024-01-28] MEDS: sodium chloride 3% 500 ML 25 ML IV (21:50)
[2024-01-28] MEDS: potassium chloride premix 100 ML 25 MEQ IV (21:51)
[2024-01-29] VITALS (41 sets, daily range): BP systolic 113–172; BP diastolic 51–108; PULSE 58–98; RESP 12–24; TEMP 36.1–36.4; O2SAT 92–100
[2024-01-29 00:38] LABS: Anion Gap 17.8 (5-19); Blood Urea Nitrogen 14 mg/dL (8-23); Calcium 8.2 mg/dL (8.5-10.5); Carbon Dioxide 22 mmol/L (22-29); Chloride 81 mmol/L (98-107); Glucose 99 mg/dL (65-115); Osmolality Calculated 247 mOsm/kg (285-295)
[2024-01-29 00:51] LABS: Potassium 2.8 mmol/L (3.5-5.1); Sodium 118 mmol/L (136-145)
[2024-01-29] MEDS: potassium chloride premix 100 ML 25 MEQ IV ×3 (01:44→21:14)
[2024-01-29 04:18] LABS: Basophils % 0.2 %; Eosinophils # 0.1 10^3/uL (0.0-0.8); Eosinophils % 0.8 %; Lymphocytes # 0.5 10^3/uL (0.8-4.8); Lymphocytes % 4.7 %; Mean Corpuscular HGB Conc 34.5 g/dL (30-55); Mean Corpuscular Volume 81.2 fl (85-98); Monocytes # 0.6 10^3/uL (0.2-0.9); Monocytes % 5.5 %; Neutrophils % 88.5 %; Nucleated Red Blood Cells % 0 %; Platelet Count 321 10^3/cmm (157-399); Red Blood Count 3.57 10^6/uL (3.85-5.65); Red Cell Distribution Width 14.6 % (12.1-15.1); White Blood Count 11.19 10^3/uL (3.29-11.43)
[2024-01-29 04:35] LABS: Alanine Aminotransferase 28 U/L (0-33); Albumin Level 3.2 g/dL (3.5-5.2); Alkaline Phosphatase 121 U/L (35-105); Anion Gap 15.5 (5-19); Aspartate Amino Transferase 70 U/L (0-32); Blood Urea Nitrogen 13 mg/dL (8-23); Calcium 8.1 mg/dL (8.5-10.5); Carbon Dioxide 23 mmol/L (22-29); Chloride 85 mmol/L (98-107); Glucose 87 mg/dL (65-115); Magnesium 2.3 mg/dL (1.7-2.3); Osmolality Calculated 251 mOsm/kg (285-295); Sodium 121 mmol/L (136-145); Total Bilirubin 0.5 mg/dL (0.15-1.2); Total Protein 6.2 g/dL (6.6-8.7)
[2024-01-29 04:56] LABS: Potassium 2.5 mmol/L (3.5-5.1)
--- NOTE | 2024-01-29 05:26 | PC.NURSE ---
Dr. Delgado ordered to pause 3% sodium chloride.
[2024-01-29] MEDS: levothyroxine 25 mcg Tablet PO (05:49)
[2024-01-29 08:05] LABS: Blood Urea Nitrogen 12 mg/dL (8-23); Calcium 8.3 mg/dL (8.5-10.5); Carbon Dioxide 22 mmol/L (22-29); Chloride 86 mmol/L (98-107); Creatinine Clr Calc Pharmacy 56.6721; Glucose 94 mg/dL (65-115); Osmolality Calculated 254 mOsm/kg (285-295); Sodium 122 mmol/L (136-145)
[2024-01-29] MEDS: enoxaparin 40 mg/0.4 mL Syringe SUBCUT (08:16)
--- NOTE | 2024-01-29 08:29 | P.PN_ITS ---
Subjective 2 Subjective: Pilar is awake, and pleasant. She is frustrated she is not thinking as good as she thinks she is should. No pain. No nausea or headache. One-to-one sitter was placed on her last night as she was pulling at lines. Medications: Reviewed: Yes Vitals/I&O/Wt Last Vital Signs Temp 96.9 F L 01/29/24 07:00 Pulse 97 01/29/24 08:00 Resp 16 01/29/24 08:00 BP 143/56 01/29/24 05:00 Pulse Ox 97 01/29/24 08:00 O2 Del Method Room Air 01/29/24 08:00 O2 Flow Rate 2 01/28/24 07:55 01/28/24 01/29/24 01/29/24 22:59 06:59 14:59 Intake Total 400 / 665 386.666 / 1051.666 Output Total 1400 / 1400 250 / 1650 Balance -1000 / -735 136.666 / -598.334 Weight last 48 hrs Weight 75.342 kg Weight 76 kg Weight 76 kg Weight 77.111 kg Physical Exam 2 Narrative: General exam no distress Neck is supple Cardiovascular regular rate and rhythm, no murmur Lungs clear Abdomen is soft nontender Extremities no sinus clubbing edema Velez noted Urinary Catheter Management: Velez: Cath Placed During This Visit: yes, but has since been removed by the nurse Reason for Continuing Indwelling Catheter: Acute Urinary Retention or Obstruction Urinary Catheter Date of Insertion: 01/28/24 Urinary Catheter Time of Insertion: 08:40 Date Urinary Catheter Removed: 01/28/24 Time Urinary Catheter Discontinued: 04:00 Data 01/29/24 04:05 01/29/24 07:41 A&P Assessment and plan (1) Hyponatremia: Severe hyponatremia, probably acute Multiple hypertonic saline boluses have been initiated Sodium 122 today Repeat BMP around 2 PM Appreciate nephrology consultation Repeat laboratory tomorrow Possible transfer out of ICU this afternoon (2) UTI (urinary tract infection): Question UTI. Await urine culture. Continue Rocephin. (3) Acute encephalopathy: Currently improving. Likely related to low sodium. Head CT with no acute findings B12 and TSH normal Plan Marked hypokalemia. Continue to supplement Fall. No apparent injuries on multiple CT Attestations 2 Medical Necessity Statement*: Needs continued hospital stay for treatment of hypokalemia, hyponatremia which was severe and symptomatic. Diagnoses Hyponatremia E87.1 UTI (urinary tract infection) N39.0 Acute encephalopathy G93.40 Time Spent (min) 24
--- NOTE | 2024-01-29 11:25 | PC.SOCIAL ---
IMM Update Pg. 2 of IMM update. Copy provided.
[2024-01-29] MEDS: cefTRIAXone 1,000 mg SDV 1000 MG IVP (11:32)
[2024-01-29 13:20] LABS: Anion Gap 18.2 (5-19); Blood Urea Nitrogen 12 mg/dL (8-23); Calcium 8.5 mg/dL (8.5-10.5); Carbon Dioxide 20 mmol/L (22-29); Chloride 86 mmol/L (98-107); Creatinine Clr Calc Pharmacy 56.6721; Glucose 112 mg/dL (65-115); Osmolality Calculated 253 mOsm/kg (285-295); Potassium 3.2 mmol/L (3.5-5.1); Sodium 121 mmol/L (136-145)
--- NOTE | 2024-01-29 13:32 | P.PN_ITS ---
Subjective 2 Subjective: no new complaints Medications: Reviewed: Yes Vitals/I&O/Wt Last Vital Signs Temp 96.9 F L 01/29/24 07:00 Pulse 83 01/29/24 12:00 Resp 15 01/29/24 12:00 BP 156/74 01/29/24 11:30 Pulse Ox 96 01/29/24 12:00 O2 Del Method Room Air 01/29/24 08:00 O2 Flow Rate 2 01/28/24 07:55 01/28/24 01/29/24 01/29/24 22:59 06:59 14:59 Intake Total 400 / 665 386.666 / 1051.666 200 / 200 Output Total 1400 / 1400 250 / 1650 500 / 500 Balance -1000 / -735 136.666 / -598.334 -300 / -300 Weight last 48 hrs Weight 75.342 kg Weight 76 kg Weight 76 kg Weight 77.111 kg Physical Exam 2 Narrative: AWAKE , ALERT NO DISTRESS S1S2 RRR per report Lungs clear per report No edema Urinary Catheter Management: Velez: Cath Placed During This Visit: yes, but has since been removed by the nurse Reason for Continuing Indwelling Catheter: Acute Urinary Retention or Obstruction Urinary Catheter Date of Insertion: 01/28/24 Urinary Catheter Time of Insertion: 08:40 Date Urinary Catheter Removed: 01/28/24 Time Urinary Catheter Discontinued: 04:00 Data 01/29/24 04:05 01/29/24 12:33 Micro: Microbiology 01/27/24 22:57 Urine Culture - Preliminary Urine,Clean Catch A&P Assessment and plan (1) Hyponatremia: 1. Hyponatremia: Likely hypovolemic in the setting of poor p.o. intake, status post 3% saline boluses x 2 followed by 3% saline infusion , --> off now . most recent sodium- 122 - awaiting repeat sodium levels. Await urine osmolality -continue fluid restriction 1500 ml/day 2. Severe hypokalemia: Likely from poor p.o. intake, replete aggressively, 3. Question UTI 4. Anemia:, Mild monitor 5. Dementia Patient evaluated using audiovisual cart. Time spent 40 minutes. (2) Hypokalemia: Attestations 2 Medical Necessity Statement*: [facility] Coding Level of Care Code Acute Code for [facility] Fwd Diagnoses Hyponatremia E87.1 Hypokalemia E87.6
[2024-01-29] MEDS: oxyCODONE 5 mg IR Tab/Cap 10 MG PO ×2 (13:55→21:54)
[2024-01-29] MEDS: potassium chloride oral liq 20 mEq/15 mL UDC 40 MEQ PO (14:53)
[2024-01-29 15:35] LABS: Anion Gap 17.2 (5-19); Blood Urea Nitrogen 12 mg/dL (8-23); Calcium 8.6 mg/dL (8.5-10.5); Carbon Dioxide 22 mmol/L (22-29); Chloride 85 mmol/L (98-107); Creatinine Clr Calc Pharmacy 56.6721; Glucose 104 mg/dL (65-115); Osmolality Calculated 252 mOsm/kg (285-295); Potassium 3.2 mmol/L (3.5-5.1); Sodium 121 mmol/L (136-145)
[2024-01-29 16:14] LABS: Osmolality Serum 241 mOsm/kg (278-305)
[2024-01-29 17:48] LABS: Glucose Point of Care 88 mg/dL (70-110)
[2024-01-29 18:28] LABS: Anion Gap 17.8 (5-19); Blood Urea Nitrogen 12 mg/dL (8-23); Calcium 8.6 mg/dL (8.5-10.5); Carbon Dioxide 22 mmol/L (22-29); Chloride 86 mmol/L (98-107); Creatinine Clr Calc Pharmacy 56.6721; Glucose 86 mg/dL (65-115); Osmolality Calculated 253 mOsm/kg (285-295); Potassium 3.8 mmol/L (3.5-5.1); Sodium 122 mmol/L (136-145)
[2024-01-29 20:38] LABS: Anion Gap 17.2 (5-19); Blood Urea Nitrogen 11 mg/dL (8-23); Calcium 8.5 mg/dL (8.5-10.5); Carbon Dioxide 23 mmol/L (22-29); Chloride 83 mmol/L (98-107); Creatinine Clr Calc Pharmacy 56.6721; Glucose 89 mg/dL (65-115); Osmolality Calculated 249 mOsm/kg (285-295); Potassium 3.2 mmol/L (3.5-5.1); Sodium 120 mmol/L (136-145)
[2024-01-29] MEDS: sodium chloride 0.9% 1,000 ML 60 ML IV (21:14)
--- NOTE | 2024-01-29 21:20 | PC.NURSE ---
Dr. Delgado contacted about sodium and potassium levels. 40 meq Krider ordered, NS at 60, and repeat CMP in four hours.
[2024-01-30] VITALS (33 sets, daily range): BP systolic 104–188; BP diastolic 54–104; PULSE 16–110; RESP 0–72; TEMP 36.3–36.9; O2SAT 87–100; BMI 28.5
[2024-01-30 00:39] LABS: Blood Urea Nitrogen 10 mg/dL (8-23); Calcium 8.3 mg/dL (8.5-10.5); Carbon Dioxide 22 mmol/L (22-29); Chloride 87 mmol/L (98-107); Creatinine Clr Calc Pharmacy 56.6721; Glucose 78 mg/dL (65-115); Osmolality Calculated 250 mOsm/kg (285-295); Sodium 121 mmol/L (136-145)
[2024-01-30 01:04] LABS: Anion Gap 15.8 (5-19); Potassium 3.8 mmol/L (3.5-5.1)
[2024-01-30] MEDS: levothyroxine 25 mcg Tablet PO (05:12)
[2024-01-30 05:37] LABS: Basophils % 0.3 %; Eosinophils # 0.3 10^3/uL (0.0-0.8); Eosinophils % 4.3 %; Hematocrit 28.1 % (36-47); Lymphocytes # 0.6 10^3/uL (0.8-4.8); Lymphocytes % 9.1 %; Mean Corpuscular HGB Conc 33.1 g/dL (30-55); Mean Corpuscular Volume 81.7 fl (85-98); Mean Platelet Volume 9.1 fL (7.4-10.4); Monocytes # 0.5 10^3/uL (0.2-0.9); Monocytes % 7.4 %; Neutrophils # 5.54 10^3/uL (1.8-7.7); Neutrophils % 78.6 %; Nucleated Red Blood Cells % 0 %; Platelet Count 292 10^3/cmm (157-399); Red Blood Count 3.44 10^6/uL (3.85-5.65); Red Cell Distribution Width 15.1 % (12.1-15.1); White Blood Count 7.04 10^3/uL (3.29-11.43)
[2024-01-30] MEDS: oxyCODONE 5 mg IR Tab/Cap 10 MG PO ×3 (05:56→17:54)
[2024-01-30 05:58] LABS: Alanine Aminotransferase 30 U/L (0-33); Alkaline Phosphatase 172 U/L (35-105); Anion Gap 16.2 (5-19); Aspartate Amino Transferase 59 U/L (0-32); Blood Urea Nitrogen 9 mg/dL (8-23); Calcium 7.7 mg/dL (8.5-10.5); Carbon Dioxide 21 mmol/L (22-29); Chloride 91 mmol/L (98-107); Creatinine Clr Calc Pharmacy 56.6721; Glucose 77 mg/dL (65-115); Osmolality Calculated 257 mOsm/kg (285-295); Potassium 3.2 mmol/L (3.5-5.1); Sodium 125 mmol/L (136-145); Total Bilirubin 0.4 mg/dL (0.15-1.2)
--- NOTE | 2024-01-30 07:19 | P.PN_ITS ---
Subjective 2 Subjective: no new complaints Medications: Reviewed: Yes Vitals/I&O/Wt Last Vital Signs Temp 97.5 F L 01/29/24 20:00 Pulse 73 01/30/24 06:00 Resp 23 H 01/30/24 06:00 BP 168/104 01/30/24 06:00 Pulse Ox 96 01/30/24 06:00 O2 Del Method Room Air 01/30/24 06:00 O2 Flow Rate 2 01/28/24 07:55 01/29/24 01/30/24 01/30/24 22:59 06:59 14:59 Intake Total 100 / 300 340 / 640 Output Total 150 / 650 Balance -50 / -350 340 / -10 Weight last 48 hrs Weight 75.325 kg Weight 75.342 kg Physical Exam 2 Narrative: AWAKE , ALERT NO DISTRESS S1S2 RRR per report Lungs clear per report No edema Urinary Catheter Management: Velez: Cath Placed During This Visit: yes, but has since been removed by the nurse Reason for Continuing Indwelling Catheter: Acute Urinary Retention or Obstruction Urinary Catheter Date of Insertion: 01/28/24 Urinary Catheter Time of Insertion: 08:40 Date Urinary Catheter Removed: 01/28/24 Time Urinary Catheter Discontinued: 04:00 Data 01/30/24 04:20 01/30/24 04:20 Micro: Microbiology 01/27/24 22:57 Urine Culture - Preliminary Urine,Clean Catch A&P Assessment and plan (1) Hyponatremia: 1. Hyponatremia: Likely hypovolemic in the setting of poor p.o. intake, status post 3% saline boluses x 2 followed by 3% saline infusion , --> off now . Currently on NS. Most recent sodium- 125 - Await urine osmolality -continue fluid restriction 1500 ml/day 2. Severe hypokalemia: Likely from poor p.o. intake, replete aggressively, 3. Question UTI 4. Anemia:, Mild monitor 5. Dementia Patient evaluated using audiovisual cart. Time spent 40 minutes. (2) Hypokalemia: Attestations 2 Medical Necessity Statement*: PER MEDICINE Coding Level of Care Code Acute Code for [facility] Fwd Diagnoses Hyponatremia E87.1 Hypokalemia E87.6
[2024-01-30] MEDS: potassium chloride ER 20 mEq Tablet 40 MEQ PO ×3 (08:02→17:04)
[2024-01-30] MEDS: albumin 25 G/100 ML BAG 60 G IV (08:02)
[2024-01-30] MEDS: enoxaparin 40 mg/0.4 mL Syringe SUBCUT (08:02)
--- NOTE | 2024-01-30 08:27 | P.PN_ITS ---
Subjective 2 Subjective: Pilar reports she is doing okay. No pain. Does not feel hungry this morning. Medications: Reviewed: Yes Vitals/I&O/Wt Last Vital Signs Temp 97.5 F L 01/29/24 20:00 Pulse 95 01/30/24 07:49 Resp 16 01/30/24 07:49 BP 168/104 01/30/24 06:00 Pulse Ox 95 01/30/24 07:49 O2 Del Method Room Air 01/30/24 07:49 O2 Flow Rate 2 01/28/24 07:55 01/29/24 01/30/24 01/30/24 22:59 06:59 14:59 Intake Total 100 / 300 340 / 640 Output Total 150 / 650 Balance -50 / -350 340 / -10 Weight last 48 hrs Weight 75.325 kg Weight 75.342 kg Physical Exam 2 Narrative: General exam no distress Neck is supple Cardiovascular regular rate and rhythm, no murmur Lungs clear Abdomen is soft nontender Extremities no sinus clubbing edema Velez noted Urinary Catheter Management: Velez: Cath Placed During This Visit: yes, but has since been removed by the nurse Reason for Continuing Indwelling Catheter: Acute Urinary Retention or Obstruction Urinary Catheter Date of Insertion: 01/28/24 Urinary Catheter Time of Insertion: 08:40 Date Urinary Catheter Removed: 01/28/24 Time Urinary Catheter Discontinued: 04:00 Data 01/30/24 04:20 01/30/24 04:20 Micro: Microbiology 01/27/24 22:57 Urine Culture - Preliminary Urine,Clean Catch A&P Assessment and plan (1) Hyponatremia: Severe hyponatremia, probably acute Multiple hypertonic saline boluses have been initiated Sodium is now 125 Repeat BMP around 1 PM Appreciate nephrology consultation Repeat laboratory tomorrow Transfer out of ICU to [facility] today She has been also been placed on 60 cc an hour of normal saline as well as a fluid restriction. (2) UTI (urinary tract infection): Question UTI. Await urine culture. Continue Rocephin. (3) Acute encephalopathy: Improved. Patient does have underlying dementia.. Likely related to low sodium. Head CT with no acute findings B12 and TSH normal Plan Marked hypokalemia. Improved, continue to supplement Fall. No apparent injuries on multiple CT Attestations 2 Medical Necessity Statement*: Needs continued hospitalization for further correction of sodium prior to consideration of discharge. May need skilled care. Diagnoses Hyponatremia E87.1 UTI (urinary tract infection) N39.0 Acute encephalopathy G93.40 Time Spent (min) 24
[2024-01-30] MEDS: duloxetine 30 mg Capsule PO (08:57)
[2024-01-30] MEDS: cefTRIAXone 1,000 mg SDV 1000 MG IVP (11:38)
[2024-01-30] MEDS: sodium chloride 0.9% 1,000 ML 60 ML IV ×2 (11:39→13:25)
[2024-01-30 13:32] LABS: Anion Gap 17.8 (5-19); Blood Urea Nitrogen 8 mg/dL (8-23); Calcium 8.6 mg/dL (8.5-10.5); Carbon Dioxide 21 mmol/L (22-29); Chloride 87 mmol/L (98-107); Creatinine Clr Calc Pharmacy 56.6659; Glucose 108 mg/dL (65-115); Osmolality Calculated 253 mOsm/kg (285-295); Potassium 3.8 mmol/L (3.5-5.1); Sodium 122 mmol/L (136-145)
[2024-01-30] MEDS: sodium chloride 1 gm Tablet PO ×2 (14:08→17:04)
[2024-01-30] MEDS: FUROsemide 10 mg/mL SDV 4mL 40 MG IVP (14:08)
[2024-01-30 15:47] LABS: SARS Covid-2 Antigen negative (Negative)
[2024-01-30 16:39] LABS: Osmolality Urine 374 mOsm/kg (50-1200)
[2024-01-30] MEDS: docusate sodium 100 mg Capsule PO (17:04)
[2024-01-30] MEDS: donepezil 5 MG Tablet PO (20:07)
[2024-01-30 21:32] LABS: Anion Gap 19.6 (5-19); Blood Urea Nitrogen 8 mg/dL (8-23); Calcium 8.6 mg/dL (8.5-10.5); Carbon Dioxide 22 mmol/L (22-29); Chloride 87 mmol/L (98-107); Creatinine Clr Calc Pharmacy 56.6659; Glucose 80 mg/dL (65-115); Osmolality Calculated 257 mOsm/kg (285-295); Potassium 3.6 mmol/L (3.5-5.1); Sodium 125 mmol/L (136-145)
[2024-01-31] VITALS (13 sets, daily range): BP systolic 126–177; BP diastolic 65–79; PULSE 68–96; RESP 12–18; TEMP 36.6–36.8; O2SAT 94–97
[2024-01-31] MEDS: acetaminophen 500 mg Tablet PO (01:05)
[2024-01-31] MEDS: oxyCODONE 5 mg IR Tab/Cap 10 MG PO ×3 (02:26→22:33)
[2024-01-31] MEDS: levothyroxine 25 mcg Tablet PO (05:49)
[2024-01-31 06:33] LABS: Basophils % 0.4 %; Eosinophils # 0.3 10^3/uL (0.0-0.8); Eosinophils % 4.3 %; Hematocrit 32.8 % (36-47); Lymphocytes % 12.9 %; Mean Corpuscular HGB Conc 33.2 g/dL (30-55); Mean Corpuscular Hemoglobin 27.6 pg (27-33); Mean Platelet Volume 8.8 fL (7.4-10.4); Monocytes # 0.7 10^3/uL (0.2-0.9); Monocytes % 8.8 %; Neutrophils # 5.75 10^3/uL (1.8-7.7); Nucleated Red Blood Cells % 0 %; Platelet Count 321 10^3/cmm (157-399); Red Blood Count 3.95 10^6/uL (3.85-5.65); Red Cell Distribution Width 15.5 % (12.1-15.1); White Blood Count 7.88 10^3/uL (3.29-11.43)
[2024-01-31 06:48] LABS: Anion Gap 18.8 (5-19); Blood Urea Nitrogen 8 mg/dL (8-23); Calcium 8.6 mg/dL (8.5-10.5); Carbon Dioxide 25 mmol/L (22-29); Chloride 85 mmol/L (98-107); Creatinine Clr Calc Pharmacy 56.6659; Glucose 81 mg/dL (65-115); Osmolality Calculated 257 mOsm/kg (285-295); Potassium 3.8 mmol/L (3.5-5.1); Sodium 125 mmol/L (136-145)
[2024-01-31] MEDS: duloxetine 30 mg Capsule PO (08:29)
[2024-01-31] MEDS: potassium chloride ER 20 mEq Tablet 40 MEQ PO ×2 (08:29→17:23)
[2024-01-31] MEDS: docusate sodium 100 mg Capsule PO ×2 (08:29→17:23)
[2024-01-31] MEDS: sodium chloride 1 gm Tablet PO ×3 (08:29→20:09)
[2024-01-31] MEDS: enoxaparin 40 mg/0.4 mL Syringe SUBCUT (08:29)
--- NOTE | 2024-01-31 08:46 | P.PN_ITS ---
Subjective 2 Subjective: Pilar is awake, conversant, reports she is not that hungry. No pain. Medications: Reviewed: Yes Vitals/I&O/Wt Last Vital Signs Temp 98.3 F 01/31/24 07:34 Pulse 70 01/31/24 07:34 Resp 15 01/31/24 07:34 BP 173/73 01/31/24 07:34 Pulse Ox 97 01/31/24 07:34 O2 Del Method Room Air 01/31/24 07:34 O2 Flow Rate 2 01/28/24 07:55 01/30/24 01/31/24 01/31/24 22:59 06:59 14:59 Intake Total 100 / 1415 120 / 120 Output Total 300 / 950 Balance -200 / 465 120 / 120 Weight last 48 hrs Weight 75.325 kg Physical Exam 2 Narrative: General exam no distress Neck is supple Cardiovascular regular rate and rhythm, no murmur Lungs clear Abdomen is soft nontender Extremities no sinus clubbing edema Velez noted Urinary Catheter Management: Velez: Cath Placed During This Visit: yes, but has since been removed by the nurse Reason for Continuing Indwelling Catheter: Acute Urinary Retention or Obstruction Urinary Catheter Date of Insertion: 01/28/24 Urinary Catheter Time of Insertion: 08:40 Date Urinary Catheter Removed: 01/28/24 Time Urinary Catheter Discontinued: 04:00 Data 01/31/24 06:20 01/31/24 06:20 Micro: Microbiology 01/27/24 22:57 Urine Culture - Preliminary Urine,Clean Catch A&P Assessment and plan (1) Hyponatremia: Severe hyponatremia, probably acute Multiple hypertonic saline boluses were initiated on admission Sodium is now 125, the same as yesterday Repeat BMP around 1 PM Appreciate nephrology consultation Added salt tablets yesterday afternoon, give a dose of Lasix. Repeat dose of Lasix today. Exceeded fluid intake yesterday. Continuous IV fluids of normal saline were not helpful (2) UTI (urinary tract infection): Question UTI. Await urine culture. Continue Rocephin. (3) Acute encephalopathy: Improved. Patient does have underlying dementia.. Likely related to low sodium. Head CT with no acute findings B12 and TSH normal Plan Marked hypokalemia. Now resolved. Continue supplementation. Fall. No apparent injuries on multiple CT Lovenox for DVT prophylaxis Attestations 2 Medical Necessity Statement*: Requires continued hospitalization, for stabilization of sodium to where this is at or near 130 prior to discharge to nursing facility. Diagnoses Hyponatremia E87.1 UTI (urinary tract infection) N39.0 Acute encephalopathy G93.40 Time Spent (min) 21
[2024-01-31] MEDS: FUROsemide 10 mg/mL SDV 4mL 40 MG IVP (09:45)
[2024-01-31] MEDS: albumin 25 G/100 ML BAG 60 G IV (09:50)
[2024-01-31] MEDS: cefTRIAXone 1,000 mg SDV 1000 MG IVP (13:00)
[2024-01-31 13:21] LABS: Anion Gap 20.5 (5-19); Blood Urea Nitrogen 8 mg/dL (8-23); Calcium 9.1 mg/dL (8.5-10.5); Carbon Dioxide 24 mmol/L (22-29); Chloride 84 mmol/L (98-107); Creatinine Clr Calc Pharmacy 56.6659; Glucose 100 mg/dL (65-115); Osmolality Calculated 258 mOsm/kg (285-295); Potassium 3.5 mmol/L (3.5-5.1); Sodium 125 mmol/L (136-145)
--- NOTE | 2024-01-31 14:32 | PC.NURSE ---
Notified Dr. Turner re: Na 125. Pt adhering to fluid restriction and taking salt tabs. Dr. Turner states will see next level.
--- NOTE | 2024-01-31 15:27 | P.PN_ITS ---
Subjective 2 Subjective: denies any complaints Medications: Reviewed: Yes Vitals/I&O/Wt Last Vital Signs Temp 98.0 F 01/31/24 11:29 Pulse 84 01/31/24 14:00 Resp 18 01/31/24 12:59 BP 177/70 01/31/24 11:29 Pulse Ox 95 01/31/24 11:29 O2 Del Method Room Air 01/31/24 11:29 O2 Flow Rate 2 01/28/24 07:55 01/31/24 01/31/24 01/31/24 06:59 14:59 22:59 Intake Total 460 / 460 Balance 460 / 460 Weight last 48 hrs Weight 75.325 kg Physical Exam 2 Narrative: AWAKE , ALERT NO DISTRESS S1S2 RRR per report Lungs clear per report No edema Urinary Catheter Management: Velez: Cath Placed During This Visit: yes, but has since been removed by the nurse Reason for Continuing Indwelling Catheter: Acute Urinary Retention or Obstruction Urinary Catheter Date of Insertion: 01/28/24 Urinary Catheter Time of Insertion: 08:40 Date Urinary Catheter Removed: 01/28/24 Time Urinary Catheter Discontinued: 04:00 Data 01/31/24 06:20 01/31/24 12:58 Micro: Microbiology 01/27/24 22:57 Urine Culture - Final Urine,Clean Catch A&P Assessment and plan (1) Hyponatremia: 1. Hyponatremia: Likely hypovolemic in the setting of poor p.o. intake, status post 3% saline boluses x 2 followed by 3% saline infusion , --> off now . Currently on NS. 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 Severe hypokalemia: Likely from poor p.o. intake, replete aggressively, improved 3. Question UTI 4. Anemia:, Mild monitor 5. Dementia Patient evaluated using audiovisual cart. Time spent 40 minutes. (2) Hypokalemia: Plan per [facility] Attestations 2 Medical Necessity Statement*: per [facility] Coding Level of Care Code Acute Code for g Fwd Diagnoses Hyponatremia E87.1 Hypokalemia E87.6
[2024-01-31 16:29] LABS: Anion Gap 20.3 (5-19); Blood Urea Nitrogen 9 mg/dL (8-23); Calcium 8.8 mg/dL (8.5-10.5); Carbon Dioxide 22 mmol/L (22-29); Chloride 86 mmol/L (98-107); Creatinine Clr Calc Pharmacy 56.6659; Glucose 87 mg/dL (65-115); Osmolality Calculated 258 mOsm/kg (285-295); Potassium 3.3 mmol/L (3.5-5.1); Sodium 125 mmol/L (136-145)
[2024-01-31 17:06] LABS: Glucose Point of Care 87 mg/dL (70-110)
[2024-01-31] MEDS: urea 15 gm Powder 10 GM PO (17:23)
[2024-01-31] MEDS: donepezil 5 MG Tablet PO (20:09)
[2024-02-01] VITALS (9 sets, daily range): BP systolic 115–164; BP diastolic 59–84; PULSE 72–93; RESP 14–18; TEMP 36.4–36.9; O2SAT 93–98
[2024-02-01 05:22] LABS: Basophils % 0.6 %; Eosinophils # 0.3 10^3/uL (0.0-0.8); Hematocrit 31.4 % (36-47); Lymphocytes # 0.9 10^3/uL (0.8-4.8); Lymphocytes % 14.3 %; Mean Corpuscular HGB Conc 32.8 g/dL (30-55); Mean Corpuscular Hemoglobin 27.5 pg (27-33); Mean Corpuscular Volume 83.7 fl (85-98); Mean Platelet Volume 8.6 fL (7.4-10.4); Monocytes % 15.4 %; Neutrophils # 4.08 10^3/uL (1.8-7.7); Neutrophils % 64.4 %; Nucleated Red Blood Cells % 0 %; Platelet Count 308 10^3/cmm (157-399); Red Blood Count 3.75 10^6/uL (3.85-5.65); Red Cell Distribution Width 15.7 % (12.1-15.1); White Blood Count 6.35 10^3/uL (3.29-11.43)
[2024-02-01] MEDS: acetaminophen 500 mg Tablet PO (05:26)
[2024-02-01] MEDS: levothyroxine 25 mcg Tablet PO (05:27)
[2024-02-01 05:47] LABS: Alanine Aminotransferase 30 U/L (0-33); Albumin Level 3.9 g/dL (3.5-5.2); Alkaline Phosphatase 121 U/L (35-105); Anion Gap 17.6 (5-19); Aspartate Amino Transferase 42 U/L (0-32); Blood Urea Nitrogen 19 mg/dL (8-23); Calcium 9.1 mg/dL (8.5-10.5); Carbon Dioxide 24 mmol/L (22-29); Chloride 85 mmol/L (98-107); Creatinine Clr Calc Pharmacy 55.6513; Globulin 3.1 g/dL (1.3-4.6); Glucose 80 mg/dL (65-115); Osmolality Calculated 257 mOsm/kg (285-295); Potassium 3.6 mmol/L (3.5-5.1); Sodium 123 mmol/L (136-145); Total Bilirubin 0.7 mg/dL (0.15-1.2)
[2024-02-01] MEDS: potassium chloride ER 20 mEq Tablet 40 MEQ PO ×3 (08:43→22:23)
[2024-02-01] MEDS: duloxetine 30 mg Capsule PO (08:43)
[2024-02-01] MEDS: enoxaparin 40 mg/0.4 mL Syringe SUBCUT (08:43)
[2024-02-01] MEDS: urea 15 gm Powder 10 GM PO ×2 (08:43→17:33)
[2024-02-01] MEDS: sodium chloride 1 gm Tablet PO ×3 (08:43→20:29)
[2024-02-01] MEDS: docusate sodium 100 mg Capsule PO ×2 (08:43→17:33)
[2024-02-01] MEDS: albumin 25 G/100 ML BAG 60 G IV ×2 (12:32→20:28)
[2024-02-01] MEDS: FUROsemide 10 mg/mL SDV 4mL 40 MG IVP ×2 (12:33→23:35)
--- NOTE | 2024-02-01 13:40 | PC.NURSE ---
pt is incontinent.unable to measure intake and output accurately
--- NOTE | 2024-02-01 15:11 | PC.NURSE ---
Called [facility] and cancelled the antibiotic per Dr. Hudson
--- NOTE | 2024-02-01 15:25 | PM.PN ---
Subjective Subjective: denies any complaints Medications: Reviewed: Yes Vitals/I&O/Wt Last Vital Signs Temp 98.4 F 02/01/24 11:16 Pulse 84 02/01/24 11:16 Resp 16 02/01/24 11:16 BP 159/75 02/01/24 11:16 Pulse Ox 96 02/01/24 11:16 O2 Del Method Room Air 02/01/24 11:16 O2 Flow Rate 2 01/28/24 07:55 02/01/24 02/01/24 02/01/24 06:59 14:59 22:59 Intake Total 220 / 220 Balance 220 / 220 Weight last 48 hrs Weight 72.507 kg Physical Exam Narrative: AWAKE , ALERT NO DISTRESS S1S2 RRR per report Lungs clear per report No edema Urinary Catheter Management: Velez: Cath Placed During This Visit: yes, but has since been removed by the nurse Reason for Continuing Indwelling Catheter: Acute Urinary Retention or Obstruction Urinary Catheter Date of Insertion: 01/28/24 Urinary Catheter Time of Insertion: 08:40 Date Urinary Catheter Removed: 01/28/24 Time Urinary Catheter Discontinued: 04:00 Data 02/01/24 05:00 02/01/24 05:00 Micro: Microbiology 01/27/24 22:57 Urine Culture - Final Urine,Clean Catch A&P Assessment and plan (1) Hyponatremia: 1. Hyponatremia: Likely hypovolemic in the setting of poor p.o. intake, status post 3% saline boluses x 2 followed by 3% saline infusion , --> off now . 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 Severe hypokalemia: Likely from poor p.o. intake, replete aggressively, improved 3. Question UTI 4. Anemia:, Mild monitor 5. Dementia Patient evaluated using audiovisual cart. Time spent 40 minutes. (2) Hypokalemia: Plan per [facility] Attestations Medical Necessity Statement*: per [facility] Coding Level of Care Code Acute Code for [facility] Fwd Diagnoses Hyponatremia E87.1 Hypokalemia E87.6
[2024-02-01 17:23] LABS: Blood Urea Nitrogen 30 mg/dL (8-23); Calcium 9.4 mg/dL (8.5-10.5); Carbon Dioxide 26 mmol/L (22-29); Chloride 82 mmol/L (98-107); Creatinine Clr Calc Pharmacy 55.6513; Glucose 78 mg/dL (65-115); Osmolality Calculated 265 mOsm/kg (285-295); Sodium 125 mmol/L (136-145)
[2024-02-01 17:24] LABS: Anion Gap 20.4 (5-19)
[2024-02-01 17:25] LABS: Potassium 3.4 mmol/L (3.5-5.1)
--- NOTE | 2024-02-01 17:41 | P.PN_ITS ---
Subjective 2 Subjective: Patient is confused, disoriented. Unable to tell me anything except her name Pilar. She is fidgeting in bed, reaching out for objects that are not present. Sodium continues to be low. Medications: Reviewed: Yes Vitals/I&O/Wt Last Vital Signs Temp 98.2 F 02/01/24 16:00 Pulse 85 02/01/24 16:00 Resp 16 02/01/24 16:00 BP 149/75 02/01/24 16:00 Pulse Ox 93 02/01/24 16:00 O2 Del Method Room Air 02/01/24 16:00 O2 Flow Rate 2 01/28/24 07:55 02/01/24 02/01/24 02/01/24 06:59 14:59 22:59 Intake Total 220 / 220 Balance 220 / 220 Weight last 48 hrs Weight 72.507 kg Physical Exam 2 Narrative: General: No acute distress, AO x1 HEENT: PERRLA, pupils bilaterally equal and reactive, pallors not present Chest: Normal vesicular breath sounds, no added sounds, equal good air entry bilaterally CVS: S1-S2 regular, no murmurs, no tachycardia, no gallops, no rubs Abdomen: Soft, nontender, no organomegaly, bowel sounds present Neuro: No focal deficits, no facial deformity, AO x1, moves all extremities in bed but does not follow commands Urinary Catheter Management: Velez: Cath Placed During This Visit: yes, but has since been removed by the nurse Reason for Continuing Indwelling Catheter: Acute Urinary Retention or Obstruction Urinary Catheter Date of Insertion: 01/28/24 Urinary Catheter Time of Insertion: 08:40 Date Urinary Catheter Removed: 01/28/24 Time Urinary Catheter Discontinued: 04:00 Data 02/01/24 05:00 02/02/24 08:38 A&P Assessment and plan (1) Hyponatremia: Severe hyponatremia, probably acute Multiple hypertonic saline boluses were initiated on admission Sodium is now 125, the same as yesterday Repeat BMP around 1 PM Appreciate nephrology consultation Added salt tablets yesterday afternoon, give a dose of Lasix. Repeat dose of Lasix today. Exceeded fluid intake yesterday. Continuous IV fluids of normal saline were not helpful (2) UTI (urinary tract infection): Question UTI. Await urine culture. Continue Rocephin. (3) Acute encephalopathy: Improved. Patient does have underlying dementia.. Likely related to low sodium. Head CT with no acute findings B12 and TSH normal Plan Marked hypokalemia. Now resolved. Continue supplementation. Fall. No apparent injuries on multiple CT Lovenox for DVT prophylaxis February 01, 2024. Sodium improving but still at 125. Tolvaptan yet not available. Continue salt tablets 1 g 3 times daily and urea 10 mg p.o. twice daily. Continue to trend sodium levels. Attestations 2 Medical Necessity Statement*: Severe hyponatremia needing further correction. Coding Level of Care Code Acute Code for [facility] F[facility] Moderate MDM includes number and complexity of problems actively addressed during encounter, amount and/or complexity of data reviewed/ordered and described risk of complication, morbidity or mortality of management as documented Diagnoses Hyponatremia E87.1 UTI (urinary tract infection) N39.0 Acute encephalopathy G93.40
[2024-02-01] MEDS: donepezil 5 MG Tablet PO (20:29)
[2024-02-02] VITALS (9 sets, daily range): BP systolic 115–150; BP diastolic 59–71; PULSE 75–93; RESP 12–17; TEMP 36.6–36.9; O2SAT 90–96
[2024-02-02] MEDS: albumin 25 G/100 ML BAG 60 G IV ×3 (03:06→20:15)
[2024-02-02] MEDS: levothyroxine 25 mcg Tablet PO (06:12)
[2024-02-02] MEDS: enoxaparin 40 mg/0.4 mL Syringe SUBCUT (08:13)
[2024-02-02] MEDS: docusate sodium 100 mg Capsule PO ×2 (08:13→17:40)
[2024-02-02] MEDS: duloxetine 30 mg Capsule PO (08:13)
[2024-02-02] MEDS: potassium chloride ER 20 mEq Tablet 40 MEQ PO ×2 (08:14→17:40)
[2024-02-02] MEDS: sodium chloride 1 gm Tablet PO ×3 (08:14→20:16)
[2024-02-02] MEDS: urea 15 gm Powder 10 GM PO ×2 (08:28→17:39)
[2024-02-02 09:26] LABS: Blood Urea Nitrogen 36 mg/dL (8-23); Calcium 9.8 mg/dL (8.5-10.5); Carbon Dioxide 26 mmol/L (22-29); Chloride 89 mmol/L (98-107); Creatinine Clr Calc Pharmacy 48.5895; Glucose 103 mg/dL (65-115); Osmolality Calculated 285 mOsm/kg (285-295); Sodium 133 mmol/L (136-145)
[2024-02-02 09:28] LABS: Anion Gap 21.9 (5-19); Potassium 3.9 mmol/L (3.5-5.1)
--- NOTE | 2024-02-02 12:33 | P.PN_ITS ---
Subjective 2 Subjective: no new complaints Medications: Reviewed: Yes Vitals/I&O/Wt Last Vital Signs Temp 98.4 F 02/02/24 08:00 Pulse 93 02/02/24 10:00 Resp 16 02/02/24 10:00 BP 132/59 02/02/24 08:00 Pulse Ox 95 02/02/24 10:00 O2 Del Method Room Air 02/02/24 10:00 O2 Flow Rate 2 01/28/24 07:55 02/01/24 02/02/24 02/02/24 22:59 06:59 14:59 Intake Total 460 / 680 100 / 780 118 / 118 Output Total 200 / 200 400 / 400 Balance 460 / 680 -100 / 580 -282 / -282 Weight last 48 hrs Weight 69.763 kg Weight 72.507 kg Physical Exam 2 Narrative: AWAKE , ALERT NO DISTRESS S1S2 RRR per report Lungs clear per report No edema Urinary Catheter Management: Velez: Cath Placed During This Visit: yes, but has since been removed by the nurse Reason for Continuing Indwelling Catheter: Acute Urinary Retention or Obstruction Urinary Catheter Date of Insertion: 02/02/24 Urinary Catheter Time of Insertion: 01:17 Date Urinary Catheter Removed: 01/28/24 Time Urinary Catheter Discontinued: 04:00 Data 02/01/24 05:00 02/02/24 08:38 A&P Assessment and plan (1) Hyponatremia: 1. Hyponatremia: Likely hypovolemic in the setting of poor p.o. intake, status post 3% saline boluses x 2 followed by 3% saline infusion , --> off now . 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 Severe hypokalemia: Likely from poor p.o. intake, replete aggressively, improved 3. Question UTI 4. Anemia:, Mild monitor 5. Dementia Patient evaluated using audiovisual cart. Time spent 40 minutes. (2) Hypokalemia: Plan per [facility] Attestations 2 Medical Necessity Statement*: per [facility] Coding Level of Care Code Acute Code for [facility] Fwd Diagnoses Hyponatremia E87.1 Hypokalemia E87.6
[2024-02-02] MEDS: FUROsemide 20 mg Tablet PO (16:57)
--- NOTE | 2024-02-02 18:29 | P.PN_ITS ---
Subjective 2 Subjective: Sodium up to 133 today. Patient is much more alert. Pleasantly confused. Correctly able to tell me her name, date of and age. She thinks she lives in [place] though recently she has been living with her family locally in the area. Able to have a conversation. Follows all commands. Appears much more calm today. Medications: Reviewed: Yes Vitals/I&O/Wt Last Vital Signs Temp 98.1 F 02/02/24 16:00 Pulse 84 02/02/24 16:00 Resp 17 02/02/24 16:00 BP 150/69 02/02/24 16:00 Pulse Ox 90 02/02/24 16:00 O2 Del Method Room Air 02/02/24 16:00 O2 Flow Rate 2 01/28/24 07:55 02/02/24 02/02/24 02/02/24 06:59 14:59 22:59 Intake Total 100 / 780 218 / 218 118 / 336 Output Total 200 / 200 400 / 400 250 / 650 Balance -100 / 580 -182 / -182 -132 / -314 Weight last 48 hrs Weight 69.763 kg Weight 72.507 kg Physical Exam 2 Narrative: General: No acute distress, AO x1 HEENT: PERRLA, pupils bilaterally equal and reactive, pallors not present Chest: Normal vesicular breath sounds, no added sounds, equal good air entry bilaterally CVS: S1-S2 regular, no murmurs, no tachycardia, no gallops, no rubs Abdomen: Soft, nontender, no organomegaly, bowel sounds present Neuro: No focal deficits, no facial deformity, AO x1, moves all extremities in bed but does not follow commands Urinary Catheter Management: Velez: Cath Placed During This Visit: yes, but has since been removed by the nurse Reason for Continuing Indwelling Catheter: Acute Urinary Retention or Obstruction Urinary Catheter Date of Insertion: 02/02/24 Urinary Catheter Time of Insertion: 01:17 Date Urinary Catheter Removed: 01/28/24 Time Urinary Catheter Discontinued: 04:00 Data 02/01/24 05:00 02/02/24 08:38 A&P Assessment and plan (1) Hyponatremia: Severe hyponatremia, probably acute Multiple hypertonic saline boluses were initiated on admission Sodium is now 125, the same as yesterday Repeat BMP around 1 PM Appreciate nephrology consultation Added salt tablets yesterday afternoon, give a dose of Lasix. Repeat dose of Lasix today. Exceeded fluid intake yesterday. Continuous IV fluids of normal saline were not helpful (2) UTI (urinary tract infection): Question UTI. Await urine culture. Continue Rocephin. (3) Acute encephalopathy: Improved. Patient does have underlying dementia.. Likely related to low sodium. Head CT with no acute findings B12 and TSH normal Plan Marked hypokalemia. Now resolved. Continue supplementation. Fall. No apparent injuries on multiple CT Lovenox for DVT prophylaxis February 01, 2024. Sodium improving but still at 125. Tolvaptan yet not available. Continue salt tablets 1 g 3 times daily and urea 10 mg p.o. twice daily. Continue to trend sodium levels. February 02, 2024. Sodium now improved at 133. Patient is much more alert and awake today compared to yesterday's exam. Cooperative, follows commands. She was planned to be discharged today on p.o. Lasix 20 mg twice daily, salt tablets 1 g 3 times daily with plan for follow-up labs. However she will unable to be transferred today as assisted cannot accept new patients over the weekend. Hopefully will be able to discharge in the next 24 hours if sodium remained stable. Add amlodipine 5 mg p.o. daily for hypertension. Systolic so much of the hospital admission has ranged between 1 45-1 60. Reviewing past numbers, blood pressure was noted to be between 1 60-1 70 systolic range in May 2023 as well. Attestations 2 Medical Necessity Statement*: Patient stable for discharge overall, however unable to be transported to assisted today will stay another day to continue treatment with salt tablets, urea Coding Level of Care Code Acute Code for [facility] Moderate MDM includes number and complexity of problems actively addressed during encounter, amount and/or complexity of data reviewed/ordered and described risk of complication, morbidity or mortality of management as documented Diagnoses Hyponatremia E87.1 UTI (urinary tract infection) N39.0 Acute encephalopathy G93.40
[2024-02-02] MEDS: donepezil 5 MG Tablet PO (20:16)
[2024-02-03] VITALS (7 sets, daily range): BP systolic 130–165; BP diastolic 65–77; PULSE 76–90; RESP 16–17; TEMP 36.4–36.8; O2SAT 94–99; BMI 26.4
--- NOTE | 2024-02-03 03:56 | PC.NURSE ---
this nurse spiked and hung pts albumin at 201402/02/24 with April Healy LPN. This nurse stayed with patient for first 15 minutes and they turned over infusion to April. Pt tolerated infusion and was complete at 222902/02/24.
[2024-02-03 04:37] LABS: Alanine Aminotransferase 23 U/L (0-33); Albumin Level 5.3 g/dL (3.5-5.2); Alkaline Phosphatase 101 U/L (35-105); Aspartate Amino Transferase 27 U/L (0-32); Blood Urea Nitrogen 36 mg/dL (8-23); Calcium 10.5 mg/dL (8.5-10.5); Carbon Dioxide 25 mmol/L (22-29); Chloride 92 mmol/L (98-107); Creatinine Clr Calc Pharmacy 48.5895; Glucose 91 mg/dL (65-115); Osmolality Calculated 284 mOsm/kg (285-295); Sodium 133 mmol/L (136-145); Total Bilirubin 1.1 mg/dL (0.15-1.2); Total Protein 8.3 g/dL (6.6-8.7)
[2024-02-03] MEDS: levothyroxine 25 mcg Tablet PO (06:13)
[2024-02-03] MEDS: FUROsemide 20 mg Tablet PO (08:18)
[2024-02-03] MEDS: docusate sodium 100 mg Capsule PO (08:18)
[2024-02-03] MEDS: duloxetine 30 mg Capsule PO (08:18)
[2024-02-03] MEDS: enoxaparin 40 mg/0.4 mL Syringe SUBCUT (08:18)
[2024-02-03] MEDS: amlodipine 5 mg Tablet PO (08:18)
[2024-02-03] MEDS: potassium chloride ER 20 mEq Tablet 40 MEQ PO (08:19)
[2024-02-03] MEDS: urea 15 gm Powder 10 GM PO (08:19)
[2024-02-03] MEDS: sodium chloride 1 gm Tablet PO (08:19)
--- NOTE | 2024-02-03 10:40 | PM.DCS ---
Discharge Providers Date of Admission: 01/28/24 00:59 Date of Discharge: February 03, 2024 Attending Provider at Admission: Kenyon Mcclain MD Attending Provider at Discharge: Kenyon Mcclain MD Primary Care Provider: ZEUS Simons Diagnoses at Discharge Discharge Diagnosis (1) Hyponatremia: Status: Acute (2) UTI (urinary tract infection): Status: Acute (3) Acute encephalopathy: Status: Acute Reason for Visit Reason for Visit: fall/back pain Hospital Course Hospital Course 78-year female who carries history of dementia, was admitted for management evaluation of worsening of confusion with hyponatremia. Patient was diagnosed with SIADH, she was put on fluid restriction along salt tablets and diuresis which improved her sodium at 133. Please note she was given multiple bolus of hypertonic saline on admission nephrology was consulted sodium was 112 at the time of admission. Sodium was gradually replenished. At the time of discharge patient is hemodynamically stable, oriented to herself. Pleasant. She is DNR/DNI. She is being discharged to [facility]. I have given her salt tablets along potassium supplementation with Lasix. She will stay on fluid restriction 1400 mL/day Physical Exam Narrative: Pleasant cooperative Euvolemic GCS 15 S1, S2 Currently on room air Urinary Catheter Management: Velez: Cath Placed During This Visit: yes, but has since been removed by the nurse Reason for Continuing Indwelling Catheter: Acute Urinary Retention or Obstruction Urinary Catheter Date of Insertion: 02/02/24 Urinary Catheter Time of Insertion: 01:17 Date Urinary Catheter Removed: 01/28/24 Time Urinary Catheter Discontinued: 04:00 Discharge Data Studies Completed and Pending Completed Studies During Hospitalization Category Date Time Status CT cervical spin wo con* [id number] Stat Cat Scan 01/27/24 22:[address] head wo con* [id number] Stat Cat Scan 01/27/24 22:[address] hip LT wo con* [id number] Stat Cat Scan 01/27/24 21:[address] lumbar spine wo con* [id number] Stat Cat Scan 01/27/24 20:[address] thoracic spin wo con* [id number] Stat Cat Scan 01/27/24 20:53 Completed CTA PE [CT angio chest PE protcl [id number]] Stat Cat Scan 01/28/24 00:08 Completed CXRP [XR chest 1V portable [id number]] Routine Exams 01/28/24 11:10 Completed XR hip LT 2-3V wo/w pel* [id number] Stat Exams 01/27/24 20:53 Completed Radiology Impressions Hip/Pelvis X-Ray 01/27/24 20:53 IMPRESSION: 1. Negative for fracture or dislocation, if concern for fracture remains clinically consider further evaluation with a CT scan given decreased bone mineral density somewhat limiting evaluation. 2. Severe left hip osteoarthritis. 3. Moderate to severe right hip osteoarthritis. Lumbar Spine CT 01/27/24 20:53 IMPRESSION: 1. Compression deformities of T12, L1, L2, L3, L4 and L5, age indeterminate, negative for retropulsion of bony fragments. 2. Cardiomegaly. 3. Bibasilar atelectasis versus minimal infiltrate. 4. Emphysematous changes. 5. Bilateral nonobstructing renal calyceal stones. 6. Right kidney cysts. 7. Large hiatal hernia similar visualized. 8. Right sacral 12 mm sclerotic benign bony lesion. 9. L3-L4 broad-based disc bulge with [id number] bilateral foraminal narrowing. 10. L4-L5 broad-based disc bulge with mild bilateral foraminal narrowing. 11. L5-S1 broad-based disc bulge with moderate to severe bilateral foraminal narrowing. COMMENTS: Consistent with the [employer]'s Incidental Findings Committee white paper (J Am Annalisa Radiol 2018): Any incidental renal lesion less than 1 cm or classified as too small to characterize, or any incidental cystic renal lesion characterized as simple-appearing, is likely benign. No follow-up imaging is recommended for these lesions per consensus recommendations based on imaging criteria. Thoracic Spine CT 01/27/24 20:53 IMPRESSION: 1. T10, T11 and L1 vertebral body compression deformities without retropulsion of bony fragments. 2. Cardiomegaly. 3. Coronary artery atherosclerotic calcifications. 4. Large hiatal hernia. 5. Emphysematous changes. 6. Bibasilar atelectasis versus infiltrate. Hip CT 01/27/24 21:08 IMPRESSION: 1. Negative for fracture or dislocation. 2. Severe left hip osteoarthritis. Cervical Spine CT 01/27/24 22:08 IMPRESSION: No acute findings. Head CT 01/27/24 22:08 IMPRESSION: No acute intracranial abnormality. Chest CTA 01/28/24 00:08 IMPRESSION: No acute intrathoracic pathology. Multiple compression fractures. Chest X-Ray 01/28/24 11:10 IMPRESSION: Right arm PICC line placement as above. Laboratory Results WBC 6.35 10^3/uL (3.29-11.43) 02/01/24 05:00 RBC 3.75 10^6/uL (3.85-5.65) L 02/01/24 05:00 Hgb 10.30 g/dL (11.27-16.99) L 02/01/24 05:00 Hct 31.4 % (36-47) L 02/01/24 05:00 MCV 83.7 fl (85-98) L 02/01/24 05:00 MCH 27.5 pg (27-33) 02/01/24 05:00 MCHC 32.8 g/dL (30-55) 02/01/24 05:00 RDW 15.7 % (12.1-15.1) H 02/01/24 05:00 Plt Count 308 10^3/cmm (157-399) 02/01/24 05:00 MPV 8.6 fL (7.4-10.4) 02/01/24 05:00 Neut % (Auto) 64.4 % 02/01/24 05:00 Lymph % (Auto) 14.3 % 02/01/24 05:00 [place] % (Auto) 15.4 % 02/01/24 05:00 Eos % (Auto) 5.0 % 02/01/24 05:00 Baso % (Auto) 0.6 % 02/01/24 05:00 Neut # (Auto) 4.08 10^3/uL (1.8-7.7) 02/01/24 05:00 Lymph # (Auto) 0.9 10^3/uL (0.8-4.8) 02/01/24 05:00 [place] # (Auto) 1.0 10^3/uL (0.2-0.9) H 02/01/24 05:00 Eos # (Auto) 0.3 10^3/uL (0.0-0.8) 02/01/24 05:00 Baso # (Auto) 0.0 10^3/uL (0.0-0.1) 02/01/24 05:00 Nucleated RBC % (auto) 0 % 02/01/24 05:00 Nucleated RBCs # 0.0 /100WBC 02/01/24 05:00 D-Dimer >= 20.00 ug/mLFEU (0-0.59) H 01/27/24 22:35 Sodium 133 mmol/L (136-145) L 02/03/24 03:22 Potassium 4.0 mmol/L (3.5-5.1) 02/03/24 03:22 Chloride 92 mmol/L (98-107) L 02/03/24 03:22 Carbon Dioxide 25 mmol/L (22-29) 02/03/24 03:22 Anion Gap 20.0 (5-19) H 02/03/24 03:22 BUN 36 mg/dL (8-23) H 02/03/24 03:22 Creatinine 0.9 mg/dL (0.5-0.9) 02/03/24 03:22 GFR Calculation Not Reportable 02/03/24 03:22 Glucose 91 mg/dL (65-115) 02/03/24 03:22 POC Glucose 87 mg/dL (70-110) 01/31/24 16:54 Serum Osmolality 241 mOsm/kg (278-305) L 01/28/24 03:54 Calculated Osmolality 284 mOsm/kg (285-295) L 02/03/24 03:22 Calcium 10.5 mg/dL (8.5-10.5) 02/03/24 03:22 Phosphorus 2.8 mg/dL (2.5-4.5) 01/28/24 03:54 Magnesium 2.0 mg/dL (1.7-2.3) 01/30/24 04:20 Total Bilirubin 1.1 mg/dL (0.15-1.2) 02/03/24 03:22 AST 27 U/L (0-32) 02/03/24 03:22 ALT 23 U/L (0-33) 02/03/24 03:22 Alkaline Phosphatase 101 U/L (35-105) 02/03/24 03:22 C-Reactive Protein 81.6 mg/L (0.0-4.9) H 01/28/24 03:54 Total Protein 8.3 g/dL (6.6-8.7) 02/03/24 03:22 Albumin 5.3 g/dL (3.5-5.2) H 02/03/24 03:22 Globulin 3.0 g/dL (1.3-4.6) 02/03/24 03:22 Vitamin B12 1497 pg/mL (232-1245) H 01/28/24 03:54 TSH 1.60 uIU/mL (0.27-4.20) 01/27/24 22:35 Random Cortisol 30.90 ug/dL (2.47-19.5) H 01/28/24 03:54 Urine Color Yellow (Yellow) 01/27/24 22:57 Urine Appearance Slightly cloudy (CLEAR) 01/27/24 22:57 Urine pH 6 (5-7) 01/27/24 22:57 Ur Specific [place] 1.010 (1.005-1.030) 01/27/24 22:57 Urine Protein Neg (Negative) 01/27/24 22:57 Urine Glucose (UA) Norm (Normal) 01/27/24 22:57 Urine Ketones 1+ (Negative) H 01/27/24 22:57 Urine Blood 2+ (Negative) H 01/27/24 22:57 Urine Nitrate Negative (Negative) 01/27/24 22:57 Urine Bilirubin Neg (Negative) 01/27/24 22:57 Urine Urobilinogen Neg mg/dL (Negative) 01/27/24 22:57 Ur Leukocyte Esterase Negative (Negative) 01/27/24 22:57 Urine RBC 0-4 /hpf (0-2) H 01/27/24 22:57 Urine WBC 5-10 /hpf (0-5) H 01/27/24 22:57 Ur Squamous Epith Cells 0-4 /hpf (0-5) H 01/27/24 22:57 Amorphous Sediment Not Reportable 01/27/24 22:57 Urine Bacteria 3+ /hpf (NONE) H 01/27/24 22:57 Urine Mucus 1+ /hpf 01/27/24 22:57 Urine Osmolality 374 mOsm/kg (50-1200) 01/28/24 00:15 Ur Random Sodium 61 mmol/L 01/28/24 00:15 Ur Random Potassium 49 mmol/L 01/28/24 00:15 Ur Random Chloride 80 mmol/L 01/28/24 00:15 Urine Creatinine 50 mg/dL (28-217) 01/28/24 00:15 SARS-CoV-2 Ag (Rapid) negative (Negative) 01/30/24 15:25 Vitals Last Vital Signs Temp 98.3 F 02/03/24 07:54 Pulse 86 02/03/24 09:05 Resp 16 02/03/24 09:05 BP 136/75 02/03/24 07:54 Pulse Ox 96 02/03/24 09:05 O2 Del Method Room Air 02/03/24 09:05 O2 Flow Rate 2 01/28/24 07:55 Discharge Plan Discharge Patient Disposition: Xfer SNF Condition: Stable Prescriptions: [place]-Na 15 gram Powder In Packet 10 g PO DAILY Qty: 8 0RF sodium chloride 1,000 mg Tablet,Soluble 1,000 mg PO BID Qty: 90 3RF furosemide 20 mg Tablet 20 mg PO DAILY Qty: 30 1RF amlodipine 5 mg Tablet 5 mg PO DAILY Qty: 30 0RF Continued donepezil [Aricept] 5 mg tablet 5 mg PO DAILY potassium chloride 20 mEq Tablet Extended Release 20 meq PO DAILY gabapentin 600 mg tablet 600 mg PO QID Rx Instructions: 4x day oxycodone 10 mg tablet 10 mg PO 3XD PRN (Reason: Pain) famotidine 20 mg Tablet 20 mg PO DAILY levothyroxine [Synthroid] 25 mcg tablet 25 mcg PO DAILY duloxetine 30 mg capsule,delayed release(DR/EC) 30 mg PO 2XD oxybutynin chloride 5 mg tablet 5 mg PO DAILY Discharge Orders: Discharge Order (Routine); Ordered 02/03/24 Ordered By: Kenyon Mcclain Referrals: [facility] [Outside] Neva Bertrand MD [Referring] - Discharge Diet: As Directed Activity Restrictions/Additional Instructions: Patient has SIADH, will need salt tablets, fluid restriction 1400 mL/day Always replenish potassium when she takes Lasix Discharge Attestations Time Spent in Discharge Care*: greater than 30 min Quality Metrics Clinical Quality Measures [ No reported AMI, CVA or VTE this stay] Coding Level of Care Code Acute Code for Chg Fwd Diagnoses Hyponatremia E87.1 UTI (urinary tract infection) N39.0 Acute encephalopathy G93.40
--- NOTE | 2024-02-03 12:37 | PC.NURSE ---
This Nurse called report to [facility]. All questions answered. No needs at this time.
--- NOTE | 2024-02-03 14:38 | PC.SOCIAL ---
IMM Updated Updated pt on IMM. No questions voiced. Provided pt a copy. Initialed, dated, & timed copy in chart.
== END 2024-02-03 14:44 | disposition skilled nursing facility (03) | DRG 644 ==
LOC: ER 22:28 → ICU 01-28 04:32 → MEDSURG 01-30 13:14
PROVIDERS: Hospitalist; Internal Medicine; Student in an Organized Health Care Education/Training Program; Admitting Provider Internal Medicine; Emergency Provider Emergency Medicine; PCP Nurse Practitioner Family; Visit Provider Internal Medicine
DX: E22.2 Syndrome of inappropriate secretion of antidiuretic hormone (principal); G93.40 Encephalopathy, unspecified; N39.0 Urinary tract infection, site not specified; F03.90 Unspecified dementia, unspecified severity, without behavioral disturbance, psychotic disturbance, mood disturbance, and anxiety; Z91.81 History of falling; E03.9 Hypothyroidism, unspecified; M16.12 Unilateral primary osteoarthritis, left hip; E87.6 Hypokalemia; D64.9 Anemia, unspecified; R79.89 Other specified abnormal findings of blood chemistry; Z66 Do not resuscitate
CPT/HCPCS: 36415; 36416; 36573; 36592; 51702; 70450; 71045; 71275; 72125; 72128; 72131; 73502; 73700; 80048; 80053; 81001; 82436; 82533; 82570; 82607; 82962; 83735; 83930; 83935; 84100; 84133; 84300; 84443; 85025; 85378; 86140; 87086; 87426; 93005; 96372; 97110; 97162; 97530; 99285; C1751; J0696; J1650; J1940; J3480; J7030; J7131; J8540; P9046; Q3014; Q9967

== ENCOUNTER 2024-09-22 10:45 | Outpatient (CLI) | payer MEDICARE, SELFPAY ==
--- NOTE | 2024-09-22 10:54 | US_ITS ---
WS: [id number] DIAGNOSTIC BILATERAL DIGITAL BREAST TOMOSYNTHESIS MAMMOGRAPHY WITH CAD and Rayna views. LEFT breast ultrasound, limited HISTORY: UNSPECIFIED COMPLICATION OF BREAST IMPLANT, RIGHT breast implant is hard. COMPARISON: None available. TECHNIQUE: Bilateral craniocaudad, mediolateral oblique, and mediolateral views are submitted with tomosynthesis and SM. Implant displacement views. Computer aided detection utilized. Breast composition: The breasts are heterogeneously dense, which may obscure small masses. Dense capsular contraction of each implant but much greater on the RIGHT. No suspicious grouping of calcifications. The implants are intact. There is an area of architectural distortion in the lateral LEFT breast which is probably near 2:00. No corresponding abnormality on the lateral projection is evident. Ultrasound will be obtained. LEFT breast ultrasound, limited. There is an area of very subtle spiculation and decreased echogenicity at 2:00, 2 cm from the nipple within the LEFT breast. This area measures 0.4 x 0.5 x 0.5 cm. This mass is extremely close to the implant. US/US breast LT limited* [id number] IMPRESSION: BI-RADS: 4 - Suspicious Finding - Biopsy Should Be Considered FOLLOW UP: Biopsy Recommended 1. Suspicious for LEFT breast neoplasm at 2:00. Hypoechoic masses closely asso ciated with the implant. May be difficult to biopsy due to its small size and p atient's clinical condition and implant proximity. 2. Bilateral capsular contraction, RIGHT greater than LEFT. Notified Jeniffer Goodman at 09/22/2024 12:09 PM.
== END 2024-09-22 10:46 | disposition home or self-care (01) ==
PROVIDERS: PCP Nurse Practitioner Family; Visit Provider Nurse Practitioner Adult Health
DX: T85.44XA Capsular contracture of breast implant, initial encounter (principal); X58.XXXA Exposure to other specified factors, initial encounter; R92.333 Mammographic heterogeneous density, bilateral breasts; Z98.82 Breast implant status; N63.21 Unspecified lump in the left breast, upper outer quadrant
CPT/HCPCS: 76642; 77062; G0279

== ENCOUNTER 2024-10-21 14:07 | Outpatient (CLI) | payer MEDICARE, SELFPAY ==
--- NOTE | 2024-10-21 14:13 | US_ITS ---
WS: [id number] ULTRASOUND-GUIDED LEFT BREAST BIOPSY CLINICAL INFORMATION: ABNORMAL MAMMOGRAM FINDINGS: The procedure including risks, benefits, and complications were discussed with the patient who agreed to proceed. Using sterile technique patient was prepped and draped in the usual sterile fashion. After 1% lidocaine utilizing real-time ultrasound guidance 5 14-gauge cores were obtained of the LEFT breast lesion at the 2 o'clock position 2 cm from the nipple. Subsequently a titanium clip was placed in the biopsy cavity. No immediate complications. US/[place] [id number] IMPRESSION: 1. Uncomplicated ultrasound-guided LEFT breast biopsy. 2. The pathology demonstrates fibrocystic disease with features suggestive of a complex sclerosing lesion/radial scar. Recommend breast surgery consultation for consideration of excision. Lesion is in a difficult area for resection gordon cent to the implant. 3. If no excision performed, recommend 6-month follow-up LEFT breast diagnosti c mammography and ultrasound. See pathology report for further detail. DENSITY: The breasts are heterogeneously dense, which may obscure small masses. BI-RADS: 3- Probably Benign FOLLOW UP: See Report
== END 2024-10-21 14:08 | disposition home or self-care (01) ==
PROVIDERS: PCP Electrodiagnostic Medicine; Visit Provider Nurse Practitioner Adult Health
DX: R92.8 Other abnormal and inconclusive findings on diagnostic imaging of breast (principal); N63.21 Unspecified lump in the left breast, upper outer quadrant; N60.22 Fibroadenosis of left breast; N60.82 Other benign mammary dysplasias of left breast; N60.32 Fibrosclerosis of left breast; R92.0 Mammographic microcalcification found on diagnostic imaging of breast; Z98.82 Breast implant status
CPT/HCPCS: 19083; 88305; 88342